=== PATIENT | female | born 1955 | race Caucasian/White ===

== ENCOUNTER 2020-08-04 08:26 | Outpatient (REF) | payer BC, SELFPAY ==
[2020-08-04 09:35] LABS: Hematocrit 46.9 % (37-47); Hemoglobin 15.9 g/dl (12.0-16.0); Mean Corpuscular HGB Conc 33.9 g/dl (31.0-35.0); Mean Corpuscular Hemoglobin 32.1 pg (27.0-33.0); Mean Corpuscular Volume 94.6 fL (80-98); Mean Platelet Volume 10.5 fL (9.4-12.3); Platelet Count 264 X10*3/uL (160-400); Red Blood Count 4.96 X10*6/uL (4.20-5.50); Red Cell Distribution Width 12.2 % (11.0-16.0); White Blood Count 5.6 X10*3/uL (4.8-10.8)
[2020-08-04 10:15] LABS: Alanine Aminotransferase 20 U/L (0-31); Albumin Level 4.6 g/dL (3.5-5.0); Alkaline Phosphatase 76 U/L (39-117); Anion Gap 14 (12-20); Aspartate Amino Transferase 22 U/L (5-31); Bilirubin Direct 0.5 mg/dL (0.0-0.5); Blood Urea Nitrogen 11 mg/dL (9-16); Calcium 9.8 mg/dL (8.4-10.2); Carbon Dioxide 28 mmol/L (22-29); Chloride 102 mmol/L (96-108); Cholesterol 232 mg/dL; Estimated Glomerular Filt Rate > 60; Glucose Fasting 93 mg/dL (60-99); HDL Cholesterol 126 mg/dL; LDL Cholesterol Calculated 93 mg/dl; Potassium 4.4 mmol/l (3.3-5.1); Sodium 140 mmol/L (135-145); Total Protein 7.4 g/dL (6.5-8.0); Triglycerides 68 mg/dL
== END 2020-08-04 08:27 | disposition home or self-care (01) ==
LOC: HO.LAB 08:26
DX: I10 Essential (primary) hypertension (principal); E78.5 Hyperlipidemia, unspecified
CPT/HCPCS: 36415; 80053; 80061; 80076; 82248; 85027

== ENCOUNTER 2021-03-08 13:40 | Outpatient (REF) | payer BC, SELFPAY ==
--- NOTE | ~2021-03-08 | MM_ITS ---
EXAMINATION: MM SCREENING DIGITAL BREAST TOMOSYNTHESIS, BILATERAL CLINICAL INFORMATION: Screening. Asymptomatic. The lifetime risk of breast cancer based on the Tyrer-Cuzick Model is 7%. COMPARISON: Mammography: 05/19/2019, 05/17/2018, 11/03/2016 TECHNIQUE: Digital breast tomosynthesis is performed in both the craniocaudal and mediolateral oblique views along with computer-aided detection (CAD). Synthesized 2D images are generated from the tomosynthesis. Additional right MLO view is provided. FINDINGS: There are scattered areas of fibroglandular density (ACR BI-RADS breast composition Category b). There are no significant masses, abnormal calcifications, or other abnormalities. There are scattered bilateral benign round calcifications, most are dermal. There are no significant changes from prior studies. MM/MM tomosynthesis screening BI IMPRESSION: No mammographic evidence of malignancy. ASSESSMENT: BI-RADS 2: Benign RECOMMENDATION: Routine annual mammography screening. This patient's information was entered into a reminder system with a target due date for their next mammogram.
--- NOTE | ~2021-03-08 | MM_ITS ---
EXAMINATION: BONE DENSITOMETRY CLINICAL INDICATION: Osteopenia. COMPARISON: Previous BD dated 05/20/2013 and baseline BD dated 12/31/2009. TECHNIQUE: Using a DataContact DXA System (software version: 13.1) manufactured by [employer], dual-energy x-ray absorptiometry was performed of the lumbar spine and left hip. The images are of good technical quality. Summary results are attached. FINDINGS: AP SPINE L1-L2 (excluding L3 and L4): The data of L1-L4 has been changed to exclude the L3 and L4 vertebral bodies, because degenerative changes in lumbar curvature which may cause overestimation of lumbar spine density. Current: BMD 1.398 g/cm2, Z-score 3.4, T-score 1.9, normal, 5.4% increase from previous, 0.7% increase from baseline (<5% change is not significant). Prior: BMD 1.327 g/cm2. Baseline: BMD 1.388 g/cm2. LEFT FEMUR, NECK: Current: BMD 1.009 g/cm2, Z-score 1.2, T-score -0.2, normal. Prior: BMD 1.056 g/cm2. Baseline: BMD 1.125 g/cm2. LEFT FEMUR, TOTAL: Current: BMD 0.882 g/cm2, Z-score 0.2, T-score -1.0, normal, 12.8% decrease from previous, 18.7% decrease from baseline (<5% change is not significant). Prior: BMD 1.012 g/cm2. Baseline: BMD 1.085 g/cm2. IDENTIFIED RISK FACTORS: Menopause, height loss, hysterectomy, bilateral oophorectomy. HISTORY OF FRACTURE: None listed. MEDICATIONS: Calcium, vitamin D. MM/XR DEXA axial skeleton IMPRESSION: 1. DIAGNOSIS: Normal bone density based on the lowest T-score value of -1.0 in the total femur applying World Health Organization criteria. 2. 10-YEAR FRACTURE RISK PREDICTION, FRAX: According to the guidelines, FRAX calculation should only be performed on patients in the osteopenia bone density category. Therefore, FRAX was not performed on this patient. 3. Treatment Recommendations: NOF guidelines recommend consideration for treatment in postmenopausal women and men age 50 and older presenting with the following: -A hip or vertebral (clinical or morphometric) fracture. -T-score less than or equal to -2.5 at the femoral neck or spine after appropriate evaluation to exclude secondary causes. -Low bone mass at the hip or spine and a 10-year fracture probability by FRAX of greater than or equal to 3% for hip fracture or greater than or equal to 20% for major osteoporotic fracture based on the [place] adapted WHO algorithm. 4. Other Recommendations: All treatment decisions require clinical judgment and consideration of individual patient factors, including patient preferences, comorbidities, previous drug use, risk factors not captured in the FRAX model (e.g. frailty, falls, vitamin D deficiency, increased bone turnover, interval significant decline in bone density) and possible under or overestimation of fracture risk by FRAX. FUTURE SCAN RECOMMENDATION: People with diagnosed cases of osteoporosis or at high risk for fracture should have regular bone mineral density tests. For patients eligible for Medicare, routine testing is allowed once every 2 years. The testing frequency can be increased to one year for patients who have rapidly progressing disease, those who are receiving or discontinuing medical therapy to restore bone mass, or have additional risk factors.
== END 2021-03-08 13:41 | disposition home or self-care (01) ==
LOC: HO.MAMMO 13:40
PROVIDERS: Visit Provider Internal Medicine
DX: Z12.31 Encounter for screening mammogram for malignant neoplasm of breast (principal); Z13.820 Encounter for screening for osteoporosis; M85.80 Other specified disorders of bone density and structure, unspecified site; Z78.0 Asymptomatic menopausal state; Z79.899 Other long term (current) drug therapy; Z98.890 Other specified postprocedural states
CPT/HCPCS: 77063; 77067; 77080

== ENCOUNTER 2021-05-20 06:21 | Day surgery (SDC) | payer BC, SELFPAY ==
[2021-05-13 14:00] VITALS: BMI 30.2
--- NOTE | 2021-05-17 09:44 | P.CONAN_ITS ---
Documented by User: Talita Tadeo NP 05/17/21 09:53 HPI - Anesthesia Eval Consult details Narrative: 65yo F Upper Endoscopy and Colonoscopy PMFSH Active Problems Active Problems: All Active Problems (Updated 05/13/21 @ 13:55 by Lisa Fam RN) Scoliosis (Acute) GERD (gastroesophageal reflux disease) (Acute) Shingles (Acute) Eczema (Acute) Maier esophagus (Acute) Colon cancer screening (Acute) Breast cancer screening by mammogram (Acute) Osteopenia (Acute) Anxiety (Acute) Hypertension (Acute) Hypercholesterolemia (Acute) Past Medical History Medical History Anxiety Barretts esophagus GERD (gastroesophageal reflux disease) Hypercholesterolemia Hypertension Osteopenia Surgical History Surgical History H/O colonoscopy H/O inguinal hernia repair History of section History of esophagogastroduodenoscopy (EGD) S/P NAMRATA-BSO Social History Social History Housing: House Alcohol intake: current Alcohol intake frequency: 0-2 drinks per day Patient Tobacco Use Status: Never used Tobacco Tobacco use type: Cigarette Use of substances other than those prescribed or required for medical reasons: No Advance Directives Information Provided: No Advance Directives on File: No service: No Current occupational status: employed Meds Allergies Allergy/AdvReac Type Severity Reaction Status Date / Time No Known Allergies Allergy Verified 05/20/21 06:59 Home Medications Medication Instructions Recorded Confirmed Last Taken Type cholecalciferol (vitamin D3) 50 50 mcg PO DAILY 10/25/20 05/13/21 Unknown History mcg (2,000 unit) capsule Exam Exam Date and Time: May 17, 2021 0944 Height,Weight and Vital Signs: Height 4 ft 11 in Weight 68.039 kg Assessment and Plan Assessment Anesthesia Assessment: Chart Reviewed Documented by User: Chantel Morris MD 05/20/21 07:42 [facility], [facility] Past Medical History Medical History Anxiety Barretts esophagus GERD (gastroesophageal reflux disease) Hypercholesterolemia Hypertension Osteopenia Family History Family history of problems with anesthesia: No Surgical History Surgical History H/O colonoscopy H/O inguinal hernia repair History of section History of esophagogastroduodenoscopy (EGD) S/P NAMRATA-BSO History of Problems with Anesthesia: No Social History Social History Housing: House Alcohol intake: current Alcohol intake frequency: 0-2 drinks per day Patient Tobacco Use Status: Never used Tobacco Tobacco use type: Cigarette Use of substances other than those prescribed or required for medical reasons: No Advance Directives Information Provided: No Advance Directives on File: No service: No Current occupational status: employed Meds Allergies Allergy/AdvReac Type Severity Reaction Status Date / Time No Known Allergies Allergy Verified 05/20/21 06:59 Home Medications Medication Instructions Recorded Confirmed Last Taken Type cholecalciferol (vitamin D3) 50 50 mcg PO DAILY 10/25/20 05/13/21 Unknown History mcg (2,000 unit) capsule Exam Height,Weight and Vital Signs: Height 4 ft 11 in Weight 68.039 kg Vital Signs Temp Pulse Resp BP Pulse Ox 05/20/21 07:01 98.2 F 81 16 138/81 99 Airway Mallampati Class: III TM Dist: >3cm Neck ROM: Full Loose/Missing/Broken Teeth: No (Crowns, bridge top intact) Heart: RRR Lungs: CTAB Assessment and Plan Assessment Anesthesia Assessment: Anesthesia Plan Discussed Final Anesthetic Review Family History of Problems with Anesthesia: No History of Problems with Anesthesia: No NPO: Yes ASA Class: II Final Preanesthetic Review: No Changes in Pt Med Stat, Meds/Allgs Chart Reviewed, Consent Obtained/Reviewed and Anes Risks/Benef Reviewed Patient Risk: Low Procedure Risk: Low Assessment/Block/Sedation in SS: Assess/Block/Sedation-SS Anesthetic Plan Anesthetic Plan: MAC: Disposition: Standard PACU
[2021-05-20 07:01] VITALS: BP 138/81; PULSE 81; RESP 16; TEMP 36.8; O2SAT 99
[2021-05-20] MEDS: Lactated Ringers 1,000 ML 100 ML IVCONT (07:12)
[2021-05-20 08:30] VITALS: BP 98/65; PULSE 74; RESP 20; TEMP 36.1; O2SAT 99
--- NOTE | 2021-05-20 08:35 | PM.OP ---
Brief Operative Note Date of Service: 05/20/21 Pre-op diagnosis: Maier's, Screening Post-op diagnosis: other (Hiatal hernia, Diverticulosis) Procedure: EGD with biopsies, Colonoscopy to the cecum Surgeon: Rafael Saenz Anesthesia: MAC Was an Casualty Claim Adjuster used for this Procedure?: No Estimated blood loss (mL): 3.0 Pathology: other (A. EG Junction at 35cm) Condition: stable Disposition: PACU
[2021-05-20 08:46] VITALS: BP 121/76; PULSE 73; RESP 16; TEMP 36.1; O2SAT 100
--- NOTE | 2021-05-20 09:22 | OP_ITS ---
SURGEON: Rafael Saenz MD INDICATIONS: The patient presents for evaluation of gastroesophageal reflux with associated Maier's esophagus, and colorectal cancer screening. Full consent has been obtained from her for this, including risks of bleeding and perforation. PREOPERATIVE DIAGNOSIS: POSTOPERATIVE DIAGNOSIS: PROCEDURE PERFORMED: Esophagogastroduodenoscopy with biopsies, and colonoscopy to the cecum. ESTIMATED BLOOD LOSS: COMPLICATIONS: ANESTHESIA: Monitored anesthesia care. ASSISTANTS: SPECIMENS: PREOPERATIVE DIAGNOSES: Gastroesophageal reflux, Maier's esophagus, colorectal cancer screening. POSTOPERATIVE DIAGNOSES: Gastroesophageal reflux, Maier's esophagus, colorectal cancer screening, hiatal hernia, diverticulosis, internal and external hemorrhoids. DESCRIPTION OF PROCEDURE: The patient was placed in the left lateral decubitus position. The Olympus video gastroscope was passed in the posterior oropharynx and upper esophagus under direct vision. The scope was passed slowly into the distal esophagus. The gastroesophageal junction appeared at 35 cm. There was some slight irregularity consistent with reflux and less than 1 cm areas of possible Maier's mucosa. There was no esophagitis nor any lesions. The scope entered into the stomach. There was a small hiatal hernia. The scope was advanced to pylorus and duodenum was cannulated to the descending portion. The duodenum including the bulb appeared normal without mass or ulceration. The scope was withdrawn back in the stomach. The gastric antrum and body appeared normal with good peristalsis. The scope was retroflexed visualizing the proximal stomach carefully, which appeared normal, without any sign of mass or ulceration. The scope was straightened out and withdrawn back into the esophagus. Biopsies were obtained at the EG junction at 35 cm. Proximal to this, the esophageal mucosa appeared normal. The scope was withdrawn from the patient. She was turned around for the colonoscopy. The digital rectal exam revealed some external hemorrhoids. Sphincter tone was somewhat diminished. The Olympus video pediatric colonoscope was entered into the rectum and advanced easily to the cecum. Once in the cecum, I did identify normal-appearing cecal pouch with appendiceal orifice and a normal-appearing ileocecal valve. There was transillumination of light deep in the right lower quadrant. The entire cecum and ileocecal valve appeared normal. The scope was slowly withdrawn assessing all mucosal surfaces carefully. Preparation was excellent. I did not visualize any sign of polyps, colitis, nor angiodysplasia. There was a mild amount of sigmoid diverticulosis both in the ascending colon and sigmoid colon. In the rectum, scope was retroflexed visualizing internal hemorrhoids, but no other pathology. The scope was straightened out and withdrawn from the patient. She tolerated the procedures well and was returned to the recovery area in stable condition. IMPRESSION: 1. Gastroesophageal reflux, history of Maier's esophagus, hiatal hernia. 2. Diverticulosis. 3. Internal and external hemorrhoids. PLAN: The results of the biopsy will be checked. Assuming there is no dysplasia, I would recommend a repeat upper endoscopy in 3 years. I would recommend a repeat colonoscopy in 10 years for further screening given today's negative exam and no family history of GI malignancy. She will otherwise see me on a p.r.n. basis. MD HAI Olivas/GLENN / [phone]
== END 2021-05-20 09:15 | disposition home or self-care (01) ==
PROVIDERS: PCP Internal Medicine; Visit Provider Internal Medicine
PROC: (CPT 45378; principal; 2021-05-20 07:30)
DX: Z12.11 Encounter for screening for malignant neoplasm of colon (principal); K57.30 Diverticulosis of large intestine without perforation or abscess without bleeding; K64.8 Other hemorrhoids; K21.9 Gastro-esophageal reflux disease without esophagitis; K22.70 Barrett's esophagus without dysplasia; K44.9 Diaphragmatic hernia without obstruction or gangrene; K64.4 Residual hemorrhoidal skin tags; I10 Essential (primary) hypertension; Z79.899 Other long term (current) drug therapy
CPT/HCPCS: 45378; 43239; 88305

== ENCOUNTER 2021-11-08 07:10 | Outpatient (REF) | payer BC, SELFPAY ==
[2021-11-08 07:38] LABS: MANUAL DIFF FLAG NO
[2021-11-08 08:03] LABS: Basophils Absolute Auto 0.1 X10*3/uL (0.0-0.2); Eosinophils Absolute Auto 0.7 X10*3/uL (0.0-0.4); Eosinophils Percent Auto 13.3 % (0-4); Hematocrit 42.1 % (37.0-47.0); Hemoglobin 14.3 g/dl (12.0-16.0); Imm Gran Abs Auto 0.01 X10*3/uL (0.00-0.03); Imm Gran Pct Auto 0.2 % (0.0-0.4); Lymphocytes Absolute Auto 1.6 X10*3/uL (1.2-4.9); Lymphocytes Percent Auto 30.3 % (20-40); Mean Corpuscular Hemoglobin 31.6 pg (27.0-33.0); Mean Corpuscular Volume 92.9 fL (80.0-98.0); Mean Platelet Volume 11.1 fL (9.4-12.3); Monocytes Absolute Auto 0.5 X10*3/uL (0.1-1.2); Monocytes Percent Auto 9.1 % (2-11); Neutrophils Absolute Auto 2.4 x10*3/uL (2.0-8.3); Neutrophils Percent Auto 46.1 % (45-73); Platelet Count 227 X10*3/uL (160-400); Red Blood Count 4.53 X10*6/uL (4.20-5.50); Red Cell Distribution Width 12.6 % (11.0-16.0); White Blood Count 5.3 X10*3/uL (4.8-10.8)
[2021-11-08 08:29] LABS: Alanine Aminotransferase 15 U/L (0-31); Albumin Level 4.3 g/dL (3.5-5.0); Alkaline Phosphatase 72 U/L (39-117); Anion Gap 12 (12-20); Aspartate Amino Transferase 19 U/L (5-31); Bilirubin Total 0.9 mg/dL (0.0-1.0); Blood Urea Nitrogen 12 mg/dL (9-16); Calcium 9.7 mg/dL (8.4-10.2); Carbon Dioxide 27 mmol/L (22-29); Chloride 106 mmol/L (96-108); Cholesterol 183 mg/dL; Estimated Glomerular Filt Rate > 60; Glucose Random 85 mg/dL (60-115); HDL Cholesterol 78 mg/dL; LDL Cholesterol Calculated 95 mg/dl; Potassium 4.4 mmol/L (3.3-5.1); Sodium 141 mmol/L (135-145); Triglycerides 50 mg/dL
[2021-11-08 08:52] LABS: Free T4 (Free Thyroxine) 0.82 ng/dL (0.71-1.85); Thyroid Stimulating Hormone 2.95 uIU/mL (0.32-4.0); Vitamin D 25-OH Total 39.4 ng/mL (>30)
[2021-11-08 09:41] LABS: Folate 12.7 ng/mL (> or = 4.0); Vitamin B12 441 pg/mL (200-900)
== END 2021-11-08 07:11 | disposition home or self-care (01) ==
LOC: HO.LAB 07:10
PROVIDERS: PCP Internal Medicine; Visit Provider Internal Medicine
DX: I10 Essential (primary) hypertension (principal); K22.70 Barrett's esophagus without dysplasia; M85.80 Other specified disorders of bone density and structure, unspecified site; E78.00 Pure hypercholesterolemia, unspecified
CPT/HCPCS: 36415; 80053; 80061; 82306; 82607; 82746; 84439; 84443; 85025

== ENCOUNTER 2022-06-27 14:22 | Outpatient (REF) | payer BC, SELFPAY ==
--- NOTE | ~2022-06-27 | MM_ITS ---
EXAMINATION: MM SCREENING DIGITAL BREAST TOMOSYNTHESIS, BILATERAL CLINICAL INFORMATION: Screening. Asymptomatic. The lifetime risk of breast cancer based on the Tyrer-Cuzick Model is 7%. COMPARISON: Mammography: 03/08/2021, 05/19/2019, 05/17/2018 TECHNIQUE: Digital breast tomosynthesis is performed in both the craniocaudal and mediolateral oblique views along with computer-aided detection (CAD). Synthesized 2D images are generated from the tomosynthesis. FINDINGS: There are scattered areas of fibroglandular density (ACR BI-RADS breast composition Category b). There are no significant masses, abnormal calcifications, or other abnormalities. Parenchymal pattern is similar to prior studies. There is no developing density or architectural abnormality. The axilla and skin contours are unremarkable. No significant changes. MM/MM tomosynthesis screening BI IMPRESSION: No mammographic evidence of malignancy. ASSESSMENT: BI-RADS 1: Negative RECOMMENDATION: Routine annual mammography screening. This patient's information was entered into a reminder system with a target due date for their next mammogram.
== END 2022-06-27 14:23 | disposition home or self-care (01) ==
LOC: HO.MAMMO 14:22
PROVIDERS: Visit Provider Internal Medicine
DX: Z12.31 Encounter for screening mammogram for malignant neoplasm of breast (principal)
CPT/HCPCS: 77063; 77067

== ENCOUNTER 2022-09-30 14:15 | Outpatient (REF) | payer BC, SELFPAY ==
--- NOTE | ~2022-09-30 | XR_ITS ---
EXAMINATION: XR KNEE, LEFT CLINICAL INFORMATION: Left knee sprain COMPARISON: None TECHNIQUE: Four views of the left knee. FINDINGS: There is loss of tricompartment joint space with mild chondrocalcinosis. No loose bodies, joint effusion, fracture or dislocation seen. XR/XR knee LT 4V IMPRESSION: Mild degenerative changes left knee with chondrocalcinosis. No visible acute fracture or dislocation seen.
== END 2022-09-30 14:16 | disposition home or self-care (01) ==
LOC: HO.HMGCX 14:15
PROVIDERS: PCP Internal Medicine; Visit Provider Internal Medicine
DX: S83.92XA Sprain of unspecified site of left knee, initial encounter (principal); X58.XXXA Exposure to other specified factors, initial encounter; Y93.9 Activity, unspecified; Y92.9 Unspecified place or not applicable; Y99.9 Unspecified external cause status
CPT/HCPCS: 73564

== ENCOUNTER 2023-01-31 07:11 | Outpatient (REF) | payer BC, SELFPAY ==
[2023-01-31 07:26] LABS: MANUAL DIFF FLAG NO
[2023-01-31 08:59] LABS: Basophils Absolute Auto 0.1 X10*3/uL (0.0-0.2); Eosinophils Absolute Auto 0.7 X10*3/uL (0.0-0.4); Eosinophils Percent Auto 11.7 % (0-4); Hematocrit 43.8 % (37.0-47.0); Imm Gran Abs Auto 0.01 X10*3/uL (0.00-0.03); Imm Gran Pct Auto 0.2 % (0.0-0.4); Lymphocytes Absolute Auto 2.2 X10*3/uL (1.2-4.9); Lymphocytes Percent Auto 34.3 % (20-40); Mean Corpuscular HGB Conc 34.2 g/dl (31.0-35.0); Mean Corpuscular Hemoglobin 31.6 pg (27.0-33.0); Mean Corpuscular Volume 92.4 fL (80.0-98.0); Mean Platelet Volume 11.1 fL (9.4-12.3); Monocytes Absolute Auto 0.5 X10*3/uL (0.1-1.2); Monocytes Percent Auto 8.3 % (2-11); Neutrophils Absolute Auto 2.8 x10*3/uL (2.0-8.3); Neutrophils Percent Auto 44.5 % (45-73); Platelet Count 249 X10*3/uL (160-400); Red Blood Count 4.74 X10*6/uL (4.20-5.50); Red Cell Distribution Width 12.3 % (11.0-16.0); White Blood Count 6.3 X10*3/uL (4.8-10.8)
[2023-01-31 09:47] LABS: Alanine Aminotransferase 18 U/L (0-31); Albumin Level 4.2 g/dL (3.5-5.0); Alkaline Phosphatase 74 U/L (39-117); Anion Gap 14 (12-20); Aspartate Amino Transferase 21 U/L (5-31); Bilirubin Total 1.1 mg/dL (0.0-1.0); Blood Urea Nitrogen 11 mg/dL (9-16); Calcium 9.6 mg/dL (8.4-10.2); Carbon Dioxide 24 mmol/L (22-29); Chloride 106 mmol/L (96-108); Cholesterol 217 mg/dL; Estimated Glomerular Filt Rate > 60; Glucose Random 94 mg/dL (60-115); HDL Cholesterol 104 mg/dL; LDL Cholesterol Calculated 102 mg/dl; Potassium 4.2 mmol/L (3.3-5.1); Sodium 140 mmol/L (135-145); Total Protein 6.8 g/dL (6.5-8.0); Triglycerides 55 mg/dL
[2023-01-31 09:58] LABS: Folate 8.4 ng/mL (> or = 4.0); Free T4 (Free Thyroxine) 0.95 ng/dL (0.71-1.85); Thyroid Stimulating Hormone 4.73 uIU/mL (0.32-4.0); Vitamin B12 235 pg/mL (200-900); Vitamin D 25-OH Total 33.4 ng/mL (>30)
== END 2023-01-31 07:12 | disposition home or self-care (01) ==
LOC: HO.LAB 07:11
PROVIDERS: PCP Internal Medicine; Visit Provider Internal Medicine
DX: I10 Essential (primary) hypertension (principal); E78.00 Pure hypercholesterolemia, unspecified; E55.9 Vitamin D deficiency, unspecified
CPT/HCPCS: 36415; 80053; 80061; 82306; 82607; 82746; 84439; 84443; 85025

== ENCOUNTER 2023-05-16 07:16 | Outpatient (REF) | payer BC, SELFPAY ==
[2023-05-16 09:07] LABS: Free T4 (Free Thyroxine) 0.81 ng/dL (0.71-1.85); Thyroid Stimulating Hormone 3.43 uIU/mL (0.32-4.0)
== END 2023-05-16 07:17 | disposition home or self-care (01) ==
LOC: HO.LAB 07:16
PROVIDERS: PCP Internal Medicine; Visit Provider Internal Medicine
DX: R94.6 Abnormal results of thyroid function studies (principal)
CPT/HCPCS: 36415; 84439; 84443

== ENCOUNTER 2023-05-22 15:48 | Outpatient (AMB) | payer BC, SELFPAY ==
[2023-05-22 15:57] VITALS: BP 160/94; PULSE 94; O2SAT 98; BMI 29.2
--- NOTE | 2023-05-22 15:57 | A.OFFPC_ITS ---
Vital Signs 05/22/23 15:57 05/22/23 16:42 Height 4 ft 11 in Weight 144 lb 6 oz BMI 29.2 BP 160/94 H 144/60 H Blood Pressure Location Lt brachial Lt brachial Position Sitting Sitting Pulse 94 Pulse Source Pulse Oximeter Pulse Oximetry (%) 98 Oxygen Delivery Method Room Air Intake Visit Reasons: 3 month f/u Accompanied by: Self / Same As Patient Allergies No Known Allergies Allergy (Verified 05/22/23 15:58) Medication List - Last Reconciled 05/22/23 by Jaiden Conte MD amlodipine 10 mg PO DAILY 90 days atorvastatin 40 mg PO DAILY 90 days betamethasone, augmented 0.05 % (Diprolene (augmented)) 1 appl topical BID PRN blood pressure monitor As directed calcium carbonate 600 mg PO DAILY cholecalciferol (vitamin D3) 50 mcg PO DAILY lisinopril 40 mg PO DAILY multivit,Ca,okm-S6-cniorc #181 1,000 unit tabs PO omeprazole 20 mg PO DAILY tramadol 50 mg PO TID PRN 30 days Tobacco use date assessed: 02/03/23 Fall risk assessment: No Falls in past year Last assessed Fall Risk: 05/22/23 Dental Screening Dental Screen Date: 05/22/23 Did you have a dental visit in the last 12 months?: Yes Did you have a dental problem in the last 6 months where you did not have access to dental care?: No Was dental information given to patient?: Patient has dentist HPI 3 month f/u HPI Details 67-year-old overweight female with multiple medical problems hypercholesterolemia hypertension Maier's esophagus generalized anxiety disorder lumbar degenerative disc disease with severe scoliosis coming in for follow-up. Last seen in January 2023 for physical exam. Mammogram due June colonoscopy up-to-date. Last blood work January 2023 TSH repeated normal. Patient has been doing fine otherwise no nausea no vomiting no chest pains no shortness of breath no bowel bladder symptoms. As for anxiety stable does not need any referral for counseling/decline and no medication peer PFSH Medical History Anxiety Barretts esophagus Eczema GERD (gastroesophageal reflux disease) Hypercholesterolemia Hypertension Low back pain Osteopenia Osteopenia Scoliosis Severe scoliosis Sprain of left knee Surgical History H/O colonoscopy H/O inguinal hernia repair History of section History of esophagogastroduodenoscopy (EGD) S/P NAMRATA-BSO Social History Housing: House Alcohol intake: current Alcohol intake frequency: 0-2 drinks per day Alcohol type: beer Patient Tobacco Use Status: Never used Tobacco Tobacco use type: Cigarette e-Cigarette/Vaping Use: Never Used Second Hand Smoke Exposure: No service: No Current occupational status: employed Cognitive needs: No Hearing needs: No Vision needs: Yes Questionnaire PHQ-9 Over the last 2 weeks, how often have you been bothered by any of the following problems? 1. Little interest or pleasure in doing things: not at all 2. Feeling down, depressed, or hopeless: not at all 3. Trouble falling or staying asleep, or sleeping too much: not at all 4. Feeling tired or having little energy: not at all 5. Poor appetite or overeating: not at all 6. Feeling bad about yourself - or that you are a failure or have let yourself or your family down: not at all 7. Trouble concentrating on things, such as reading the newspaper or watching television: not at all 8. Moving or speaking so slowly that other people could have noticed. Or the opposite - being so fidgety or restless that you have been moving around a lot more than usual: not at all 9. Thoughts that you would be better off or of hurting yourself in some way: not at all Total score: 0 Depression Screening Interpretation: Negative Source: Developed by Drs. Rafael Diaz, Terri Barrett, Manuel Liz and colleagues, with an educational shiraz from [employer]. Thrive Questionnaire Date Thrive assessed: 11/05/22 AUDIT C Alcohol Use Questionnaire (AUDIT-C) 1. How often do you have a drink containing alcohol?: 4 or more times a week 2. How many drinks containing alcohol do you have on a typical day when you are drinking?: 1 or 2 3. How often do you have six or more drinks on one occasion?: Never Total Score: 4 JOEY-7 AMB Questionnaire JOEY-7 Date JOEY - 7 assessed: 02/03/23 Source: Developed by Drs. Rafael Diaz, Terri Barrett, Manuel Liz and colleagues, with an educational shiraz from [employer]. Physical exam (Primary Care) Vital Signs: Last Vital Signs Pulse 94 05/22/23 15:57 BP 160/94 H 05/22/23 15:57 Pulse Ox 98 05/22/23 15:57 Oxygen Delivery Method Room Air 05/22/23 15:57 BMI result Body Mass Index 29.2 Tobacco/Smoking Status: Tobacco use Status Tobacco use date assessed 02/03/23 05/22/23 16:02 Patient Tobacco Use Status Never used Tobacco 05/22/23 16:02 Tobacco use type Cigarette 05/22/23 16:02 e-Cigarette/Vaping Use Never Used 05/22/23 16:02 PHQ-9: PHQ-9 Score PHQ-9: Total score 0 05/22/23 16:02 Depression Screening Interpretation: Negative Thrive Assessment: Date of Thrive Assessment Date Thrive assessed 11/05/22 05/22/23 16:02 Const General: alert; No acute distress Eyes Conjunctivae: conjunctivae normal Resp Auscultation: clear to auscultation bilaterally Cardio Rate: regular rate Rhythm: regular rhythm GI Inspection: Yes normal to inspection Extrem Other: Plus one edema of the lower extremity General: Yes edema Assessment and Plan Assessment & Plan (1) Lumbar degenerative disc disease: Code(s): M51.36 - Other intervertebral disc degeneration, lumbar region Plan: Keep active on tramadol lose the weight (2) TSH elevation: Code(s): R79.89 - Other specified abnormal findings of blood chemistry Plan: Repeat testing normal (3) Generalized anxiety disorder: Code(s): F41.1 - Generalized anxiety disorder Plan: Stable (4) Maier esophagus: Code(s): K22.70 - Maier's esophagus without dysplasia Qualifiers: Maier's esophagus type: without dysplasia Qualified Code(s): K22.70 - Maier's esophagus without dysplasia Plan: Avoid the foods that causes that usually spicy foods, tomato products, juices, coffee, soda and foods that your sensitive to. After eating do not lie down, a llow 3-4 hours before in lie down. And keep the head of bed above 30 degrees to avoid the acid from going up. On omeprazole 20 mg once a day (5) Hypertension: Code(s): I10 - Essential (primary) hypertension Qualifiers: Hypertension type: primary hypertension Qualified Code(s): I10 - Essential (primary) hypertension Plan: Continue with blood pressure medication. Decrease salt intake and exercise patient is taking lisinopril 40 mg once a day amlodipine 10 mg once a day BP today is high - advised to monitor at home and record (6) Hypercholesterolemia: Code(s): E78.00 - Pure hypercholesterolemia, unspecified Plan: Avoid fried foods, chicken skin, eggs, butter margarine, pastries and meat. Be it pork or beef they have a lot of cholesterol LDL goal of less than 130 and triglyceride of less than 150 patient is on atorvastatin 40 mg once a day Medications: Refilled tramadol 50 mg PO TID 30 days PRN 90 tabs 2RF pain M41.25 - Other idiopathic scoliosis, thoracolumbar region Coding Level of Care Code Est Pt Level 4 (28909) Diagnoses Lumbar degenerative disc disease M51.36 TSH elevation R79.89 Generalized anxiety disorder F41.1 Maier esophagus K22.70 Maier's esophagus type: without dysplasia Hypertension I10 Hypertension type: primary hypertension Hypercholesterolemia E78.00
[2023-05-22 16:42] VITALS: BP 144/60
== END 2023-05-22 16:46 | disposition home or self-care (01) ==
PROVIDERS: PCP Internal Medicine; Visit Provider Internal Medicine
DX: I10 Essential (primary) hypertension (principal); K22.70 Barrett's esophagus without dysplasia; M51.36 Other intervertebral disc degeneration, lumbar region; R79.89 Other specified abnormal findings of blood chemistry; F41.1 Generalized anxiety disorder; E78.00 Pure hypercholesterolemia, unspecified
CPT/HCPCS: 99214

== ENCOUNTER 2023-07-20 12:34 | Outpatient (REF) | payer BC, SELFPAY ==
--- NOTE | ~2023-07-20 | MM_ITS ---
EXAMINATION: MM SCREENING DIGITAL BREAST TOMOSYNTHESIS, BILATERAL CLINICAL INFORMATION: Screening. Asymptomatic. COMPARISON: Mammography: This study is compared with prior exams dating back to 2017 TECHNIQUE: Digital breast tomosynthesis is performed in both the craniocaudal and mediolateral oblique views along with computer-aided detection (CAD). Synthesized 2D images are generated from the tomosynthesis. FINDINGS: There are scattered areas of fibroglandular density (ACR BI-RADS breast composition Category b). There are no significant masses, abnormal calcifications, or other abnormalities. MM/MM tomosynthesis screening BI IMPRESSION: No mammographic evidence of malignancy. ASSESSMENT: BI-RADS BI-RADS 1 - Negative RECOMMENDATION: Routine annual mammography screening. 1 year F/U This examination should not preclude the clinical evaluation of a suspicious palpable abnormality. This patient's information was entered into a reminder system with a target due date for their next mammogram.
== END 2023-07-20 12:35 | disposition home or self-care (01) ==
LOC: HO.MAMMO 12:34
PROVIDERS: PCP Internal Medicine; Visit Provider Internal Medicine
DX: Z12.31 Encounter for screening mammogram for malignant neoplasm of breast (principal)
CPT/HCPCS: 77063; 77067

== ENCOUNTER → 2023-07-20 13:00 | Outpatient (BNV) | payer BC, SELFPAY | PROVIDERS: PCP Internal Medicine; Visit Provider Radiology Diagnostic Radiology | DX: Z12.31 Encounter for screening mammogram for malignant neoplasm of breast (principal) | CPT/HCPCS: 77063; 77067 ==

== ENCOUNTER 2023-09-07 12:35 | Outpatient (AMB) | payer BC, SELFPAY ==
[2023-09-07 12:45] VITALS: BP 138/76; PULSE 91; O2SAT 98; BMI 28.5
--- NOTE | 2023-09-07 12:45 | MHC.PC.OV ---
Vital Signs 09/07/23 12:45 Height 4 ft 11 in Weight 141 lb 0.2 oz BMI 28.5 BP 138/76 Blood Pressure Location Lt brachial Position Sitting Pulse 91 Pulse Source Pulse Oximeter Pulse Oximetry (%) 98 Oxygen Delivery Method Room Air Intake Visit Reasons: 3 mon f/u Dialysis Patient Care Technician Required: No Allergies No Known Allergies Allergy (Verified 09/07/23 12:46) Tobacco use date assessed: 09/07/23 Fall risk assessment: No Falls in past year Last assessed Fall Risk: 09/07/23 Dental Screening Dental Screen Date: 09/07/23 HPI 3 mon f/u HPI Details 67-year-old overweight female with a history of hypertension hypercholesterolemia Maier's esophagus generalized anxiety disorder lumbar degenerative disc disease last seen in May 2023. Up-to-date with mammogram, colonoscopy [facility] Medical History Anxiety Barretts esophagus Eczema GERD (gastroesophageal reflux disease) Hypercholesterolemia Hypertension Low back pain Osteopenia Osteopenia Scoliosis Severe scoliosis Sprain of left knee Surgical History H/O colonoscopy H/O inguinal hernia repair History of section History of esophagogastroduodenoscopy (EGD) S/P NAMRATA-BSO Social History Housing: House Alcohol intake: current Alcohol intake frequency: 0-2 drinks per day Alcohol type: beer Patient Tobacco Use Status: Never used Tobacco Tobacco use type: Cigarette e-Cigarette/Vaping Use: Never Used Second Hand Smoke Exposure: No service: No Current occupational status: employed Cognitive needs: No Hearing needs: No Vision needs: Yes Questionnaire Thrive Questionnaire Date Thrive assessed: 11/05/22 AUDIT C Alcohol Use Questionnaire (AUDIT-C) 1. How often do you have a drink containing alcohol?: 4 or more times a week 2. How many drinks containing alcohol do you have on a typical day when you are drinking?: 1 or 2 3. How often do you have six or more drinks on one occasion?: Never Total Score: 4 JOEY-7 AMB Questionnaire JOEY-7 Date JOEY - 7 assessed: 02/03/23 Source: Developed by Drs. Rafael Diaz, TerriManuel Frausto and colleagues, with an educational shiraz from [employer]. Physical exam (Primary Care) Vital Signs: Last Vital Signs Pulse 91 09/07/23 12:45 BP 138/76 09/07/23 12:45 Pulse Ox 98 09/07/23 12:45 Oxygen Delivery Method Room Air 09/07/23 12:45 BMI result Body Mass Index 28.5 Tobacco/Smoking Status: Tobacco use Status Tobacco use date assessed 09/07/23 09/07/23 12:46 Patient Tobacco Use Status Never used Tobacco 09/07/23 12:46 Tobacco use type Cigarette 09/07/23 12:46 e-Cigarette/Vaping Use Never Used 09/07/23 12:46 Thrive Assessment: Date of Thrive Assessment Date Thrive assessed 11/05/22 09/07/23 12:46 Const General: alert; No acute distress Eyes Conjunctivae: conjunctivae normal Resp Auscultation: clear to auscultation bilaterally Cardio Rate: regular rate Rhythm: regular rhythm GI Inspection: Yes normal to inspection Extrem General: Yes normal to inspection and No edema Assessment and Plan Assessment & Plan (1) Hypertension: Code(s): I10 - Essential (primary) hypertension Qualifiers: Hypertension type: primary hypertension Qualified Code(s): I10 - Essential (primary) hypertension Plan: Continue with blood pressure medication. Decrease salt intake and exercise patient takes amlodipine 10 mg once a day lisinopril 40 mg once a day (2) Hypercholesterolemia: Code(s): E78.00 - Pure hypercholesterolemia, unspecified Plan: Avoid fried foods, chicken skin, eggs, butter margarine, pastries and meat. Be it pork or beef they have a lot of cholesterol LDL goal of less than 130 and triglyceride of less than 150. Patient on atorvastatin 40 mg once a day (3) Maier esophagus: Code(s): K22.70 - Maier's esophagus without dysplasia Qualifiers: Maier's esophagus type: without dysplasia Qualified Code(s): K22.70 - Maier's esophagus without dysplasia Plan: Avoid the foods that causes that usually spicy foods, tomato products, juices, coffee, soda and foods that your sensitive to. After eating do not lie down, allow 3-4 hours before in lie down. And keep the head of bed above 30 degrees to avoid the acid from going up. On omeprazole (4) Generalized anxiety disorder: Code(s): F41.1 - Generalized anxiety disorder Plan: Stable (5) Lumbar degenerative disc disease: Code(s): M51.36 - Other intervertebral disc degeneration, lumbar region Plan: Continue being active and well hydrated. Coding Level of Care Code Est Pt Level 4 (18678) Diagnoses Primary hypertension I10 Hypertension type: primary hypertension Hypercholesterolemia E78.00 Maier's esophagus without dysplasia K22.70 Maier's esophagus type: without dysplasia Generalized anxiety disorder F41.1 Lumbar degenerative disc disease M51.36
== END 2023-09-07 13:32 | disposition home or self-care (01) ==
PROVIDERS: PCP Internal Medicine; Visit Provider Internal Medicine
DX: I10 Essential (primary) hypertension (principal); E78.00 Pure hypercholesterolemia, unspecified; K22.70 Barrett's esophagus without dysplasia; F41.1 Generalized anxiety disorder; M51.36 Other intervertebral disc degeneration, lumbar region
CPT/HCPCS: 99214

== ENCOUNTER 2023-12-14 13:44 | Outpatient (AMB) | payer BC, SELFPAY ==
[2023-12-14 13:49] VITALS: BP 140/82; PULSE 91; O2SAT 96; BMI 28.5
--- NOTE | 2023-12-14 13:49 | MHC.PC.OV ---
Vital Signs 12/14/23 13:49 12/14/23 14:41 Height 4 ft 11 in Weight 141 lb 0.1 oz BMI 28.5 BP 140/82 H 130/80 Blood Pressure Location Lt brachial Lt brachial Position Sitting Sitting Pulse 91 Pulse Source Pulse Oximeter Pulse Oximetry (%) 96 Oxygen Delivery Method Room Air Intake Visit Reasons: LBP Chemistry Quality Control Analyst Required: No Allergies No Known Allergies Allergy (Verified 12/14/23 13:49) Tobacco use date assessed: 12/14/23 HPI LBP HPI Details 68-year-old overweight female with hypertension hypercholesterolemia Barretts esophagus generalized anxiety disorder and lumbar degenerative disc coming in for follow-up. Last seen in August 2023. Patient's mammogram is up-to-date colonoscopy is up-to-date. doing good Dr. hamilton [facility] Medical History Anxiety Barretts esophagus Eczema GERD (gastroesophageal reflux disease) Hypercholesterolemia Hypertension Low back pain Osteopenia Osteopenia Scoliosis Severe scoliosis Sprain of left knee Surgical History H/O colonoscopy H/O inguinal hernia repair History of section History of esophagogastroduodenoscopy (EGD) S/P NAMRATA-BSO Social History Housing: House Alcohol intake: current Alcohol intake frequency: 0-2 drinks per day Alcohol type: beer Patient Tobacco Use Status: Never used Tobacco Tobacco use type: Cigarette e-Cigarette/Vaping Use: Never Used Second Hand Smoke Exposure: No service: No Current occupational status: employed Cognitive needs: No Hearing needs: No Vision needs: Yes Questionnaire PHQ-9 Over the last 2 weeks, how often have you been bothered by any of the following problems? 1. Little interest or pleasure in doing things: not at all 2. Feeling down, depressed, or hopeless: not at all 3. Trouble falling or staying asleep, or sleeping too much: not at all 4. Feeling tired or having little energy: not at all 5. Poor appetite or overeating: not at all 6. Feeling bad about yourself - or that you are a failure or have let yourself or your family down: not at all 7. Trouble concentrating on things, such as reading the newspaper or watching television: not at all 8. Moving or speaking so slowly that other people could have noticed. Or the opposite - being so fidgety or restless that you have been moving around a lot more than usual: not at all 9. Thoughts that you would be better off or of hurting yourself in some way: not at all Total score: 0 Depression Screening Interpretation: Negative Depression Screening Done: Yes Source: Developed by Drs. Rafael Diaz, Terri Barrett, Manuel Liz and colleagues, with an educational shiraz from [employer]. Thrive Questionnaire Date Thrive assessed: 12/14/23 I am a: Patient What is your living situation today?: I have a steady place to live Within the past 12 months, did the food you bought not last and you didn't have the money to get more?: Never true Within the past 12 months, did you worry whether your food would run out before you got money to buy more?: Never true Do you have trouble paying for medicines?: No Do you have trouble getting transportation to medical appointments?: No Do you have trouble paying your heating and electricity bill?: No Do you have trouble taking care of your child, family member or friend?: No Do you have trouble with day-to-day activities such as bathing, preparing meals, shopping, managing finances, etc.?: No Are you currently unemployed and looking for a job?: No Are you interested in more education?: No Please select the resources that you would like help with: None THRIVE Score: 0 AUDIT C Alcohol Use Questionnaire (AUDIT-C) 1. How often do you have a drink containing alcohol?: 4 or more times a week 2. How many drinks containing alcohol do you have on a typical day when you are drinking?: 1 or 2 3. How often do you have six or more drinks on one occasion?: Never Total Score: 4 JOEY-7 AMB Questionnaire JOEY-7 Date JOEY - 7 assessed: 12/14/23 Source: Developed by Drs. Rafael Diaz, Terri Barrett, Manuel Liz and colleagues, with an educational shiraz from [employer]. Physical exam (Primary Care) Vital Signs: Last Vital Signs Pulse 91 12/14/23 13:49 BP 140/82 H 12/14/23 13:49 Pulse Ox 96 12/14/23 13:49 Oxygen Delivery Method Room Air 12/14/23 13:49 BMI result Body Mass Index 28.5 Tobacco/Smoking Status: Tobacco use Status Tobacco use date assessed 12/14/23 12/14/23 13:50 Patient Tobacco Use Status Never used Tobacco 12/14/23 13:50 Tobacco use type Cigarette 12/14/23 13:50 e-Cigarette/Vaping Use Never Used 12/14/23 13:50 PHQ-9: PHQ-9 Score PHQ-9: Total score 0 12/14/23 14:39 Depression Screening Interpretation: Negative Thrive Assessment: Date of Thrive Assessment Date Thrive assessed 12/14/23 12/14/23 13:50 Const General: alert; No acute distress Eyes Conjunctivae: conjunctivae normal Resp Auscultation: clear to auscultation bilaterally Cardio Rate: regular rate Rhythm: regular rhythm GI Inspection: Yes normal to inspection Extrem General: Yes normal to inspection and No edema Assessment and Plan Assessment & Plan (1) Hypercholesterolemia: Code(s): E78.00 - Pure hypercholesterolemia, unspecified Plan: Avoid fried foods, chicken skin, eggs, butter margarine, pastries and meat. Be it pork or beef they have a lot of cholesterol LDL goal of less than 130 and triglyceride of less than 150. On atorvastatin 40 mg once a January 2023 last blood work (2) Hypertension: Code(s): I10 - Essential (primary) hypertension Qualifiers: Hypertension type: primary hypertension Qualified Code(s): I10 - Essential (primary) hypertension Plan: Continue with blood pressure medication. Decrease salt intake and exercise patient takes amlodipine 10 mg once a day lisinopril 40 mg once a (3) Maier esophagus: Code(s): K22.70 - Maier's esophagus without dysplasia Qualifiers: Maier's esophagus type: without dysplasia Qualified Code(s): K22.70 - Maier's esophagus without dysplasia Plan: Avoid the foods that causes that usually spicy foods, tomato products, juices, coffee, soda and foods that your sensitive to. After eating do not lie down, allow 3-4 hours before in lie down. And keep the head of bed above 30 degrees to avoid the acid from going up. On omeprazole (4) Generalized anxiety disorder: Code(s): F41.1 - Generalized anxiety disorder Plan: Stable (5) Lumbar degenerative disc disease: Code(s): M51.36 - Other intervertebral disc degeneration, lumbar region Plan: Continue with pain medication as needed Orders: Orders Comprehensive Met. Panel 3 Months E78.00 - Pure hypercholesterolemia, unspecified Vitamin B12 and Folate 3 Months E78.00 - Pure hypercholesterolemia, unspecified Vitamin D 25-OH Total 3 Months E78.00 - Pure hypercholesterolemia, unspecified Complete Blood Count Auto Diff 3 Months E78.00 - Pure hypercholesterolemia, unspecified Free T4 (Free Thyroxine) 3 Months E78.00 - Pure hypercholesterolemia, unspecified Thyroid Stimulating Hormone 3 Months E78.00 - Pure hypercholesterolemia, unspecified Lipid Panel 3 Months E78.00 - Pure hypercholesterolemia, unspecified Coding Level of Care Code Est Pt Level 4 (61592) Diagnoses Hypercholesterolemia E78.00 Primary hypertension I10 Hypertension type: primary hypertension Maier's esophagus without dysplasia K22.70 Maier's esophagus type: without dysplasia Generalized anxiety disorder F41.1 Lumbar degenerative disc disease M51.36
[2023-12-14 14:41] VITALS: BP 130/80
== END 2023-12-14 14:48 | disposition home or self-care (01) ==
PROVIDERS: PCP Internal Medicine; Visit Provider Internal Medicine
DX: E78.00 Pure hypercholesterolemia, unspecified (principal); I10 Essential (primary) hypertension; K22.70 Barrett's esophagus without dysplasia; F41.1 Generalized anxiety disorder; M51.36 Other intervertebral disc degeneration, lumbar region
CPT/HCPCS: 99214

== ENCOUNTER 2024-04-04 08:40 | Outpatient (REF) | payer BC, MEDICARE, SELFPAY ==
[2024-04-04 08:53] LABS: MANUAL DIFF FLAG NO
[2024-04-04 09:29] LABS: Basophils Absolute Auto 0.1 X10*3/uL (0.0-0.2); Basophils Percent Auto 1.2 % (0-2); Eosinophils Absolute Auto 0.7 X10*3/uL (0.0-0.4); Eosinophils Percent Auto 10.7 % (0-4); Hematocrit 44.7 % (37.0-47.0); Hemoglobin 15.7 g/dl (12.0-16.0); Imm Gran Abs Auto 0.01 X10*3/uL (0.00-0.03); Imm Gran Pct Auto 0.1 % (0.0-0.4); Lymphocytes Absolute Auto 1.9 X10*3/uL (1.2-4.9); Lymphocytes Percent Auto 26.9 % (20-40); Mean Corpuscular HGB Conc 35.1 g/dl (31.0-35.0); Mean Corpuscular Hemoglobin 32.4 pg (27.0-33.0); Mean Corpuscular Volume 92.4 fL (80.0-98.0); Mean Platelet Volume 10.6 fL (9.4-12.3); Monocytes Absolute Auto 0.6 X10*3/uL (0.1-1.2); Monocytes Percent Auto 8.9 % (2-11); Neutrophils Absolute Auto 3.6 x10*3/uL (2.0-8.3); Neutrophils Percent Auto 52.2 % (45-73); Platelet Count 286 X10*3/uL (160-400); Red Blood Count 4.84 X10*6/uL (4.20-5.50); Red Cell Distribution Width 13.1 % (11.0-16.0); White Blood Count 6.9 X10*3/uL (4.8-10.8)
[2024-04-04 10:20] LABS: Alanine Aminotransferase 21 U/L (0-31); Albumin Level 4.3 g/dL (3.5-5.0); Alkaline Phosphatase 81 U/L (39-117); Anion Gap 13 (12-20); Aspartate Amino Transferase 24 U/L (5-31); Bilirubin Total 0.9 mg/dL (0.0-1.0); Blood Urea Nitrogen 8 mg/dL (9-16); Calcium 9.4 mg/dL (8.4-10.2); Carbon Dioxide 27 mmol/L (22-29); Chloride 106 mmol/L (96-108); Cholesterol 220 mg/dL (<200); Estimated Glomerular Filt Rate > 60; Glucose Random 88 mg/dL (60-115); HDL Cholesterol 111 mg/dL (>40); LDL Cholesterol Calculated 96 mg/dL (<100); Potassium 4.4 mmol/L (3.3-5.1); Sodium 142 mmol/L (135-145); Total Protein 7.1 g/dL (6.5-8.0); Triglycerides 69 mg/dL (<150)
[2024-04-04 10:27] LABS: Free T4 (Free Thyroxine) 0.86 ng/dL (0.71-1.85); Thyroid Stimulating Hormone 2.87 uIU/mL (0.32-4.0); Vitamin D 25-OH Total 27.4 ng/mL (>30)
[2024-04-04 12:16] LABS: Folate 10.2 ng/mL (> or = 4.0); Vitamin B12 312 pg/mL (200-900)
== END 2024-04-04 08:41 | disposition home or self-care (01) ==
LOC: HO.LAB 08:40
PROVIDERS: PCP Internal Medicine; Visit Provider Internal Medicine
DX: E78.00 Pure hypercholesterolemia, unspecified (principal)
CPT/HCPCS: 36415; 80053; 80061; 82306; 82607; 82746; 84439; 84443; 85025

== ENCOUNTER 2024-04-08 13:46 | Outpatient (AMB) | payer MEDICARE, BC, SELFPAY ==
--- NOTE | 2024-04-08 13:57 | MHC.PC.OV ---
Vital Signs 04/08/24 13:59 04/08/24 14:45 Height 4 ft 11 in Weight 148 lb 0.6 oz BMI 29.9 BP 140/68 H 130/70 Blood Pressure Location Lt brachial Lt brachial Position Sitting Sitting Pulse 109 H Pulse Source Pulse Oximeter Pulse Oximetry (%) 98 Oxygen Delivery Method Room Air Intake Visit Reasons: 3 Month F/U Allergies No Known Allergies Allergy (Verified 04/08/24 14:02) Medication List - Last Reconciled 04/08/24 by Jaiden Conte MD amlodipine 10 mg PO DAILY 90 days atorvastatin 40 mg PO DAILY 90 days betamethasone, augmented 0.05 % (Diprolene (augmented)) 1 appl topical BID PRN blood pressure monitor As directed calcium carbonate 600 mg PO DAILY cholecalciferol (vitamin D3) 50 mcg PO DAILY lisinopril 40 mg PO DAILY multivit,Ca,[id number] #181 1,000 unit tabs PO omeprazole 20 mg PO DAILY Tobacco use date assessed: 12/14/23 Fall risk assessment: No Falls in past year Last assessed Fall Risk: 04/08/24 Dental Screening Dental Screen Date: 09/07/23 HPI 3 Month F/U HPI Details 68-year-old overweight female with a history of hypertension Barretts esophagus hypercholesterolemia generalized anxiety disorder and lumbar degenerative disc disease last seen in November 2023. Patient's mammogram is up-to-date colonoscopy up-to-date stopped tramadol since [place] does have pain still but mild. [facility] Medical History Anxiety Barretts esophagus Eczema GERD (gastroesophageal reflux disease) Hypercholesterolemia Hypertension Low back pain Osteopenia Osteopenia Scoliosis Severe scoliosis Sprain of left knee Surgical History H/O colonoscopy H/O inguinal hernia repair History of section History of esophagogastroduodenoscopy (EGD) S/P NAMRATA-BSO Social History Housing: House Alcohol intake: current Alcohol intake frequency: 0-2 drinks per day Alcohol type: beer Patient Tobacco Use Status: Never used Tobacco Tobacco use type: Cigarette e-Cigarette/Vaping Use: Never Used Second Hand Smoke Exposure: No service: No Current occupational status: employed Cognitive needs: No Hearing needs: No Vision needs: Yes Questionnaire Thrive Questionnaire Date Thrive assessed: 12/14/23 AUDIT C Alcohol Use Questionnaire (AUDIT-C) 1. How often do you have a drink containing alcohol?: 4 or more times a week 2. How many drinks containing alcohol do you have on a typical day when you are drinking?: 1 or 2 3. How often do you have six or more drinks on one occasion?: Never Total Score: 4 JEOY-7 AMB Questionnaire JOEY-7 Date JOEY - 7 assessed: 12/14/23 Source: Developed by Drs. Rafael Diaz, Terri Barrett, Manuel Liz and colleagues, with an educational shiraz from [employer]. Physical exam (Primary Care) Vital Signs: Last Vital Signs Pulse 109 H 04/08/24 13:59 BP 140/68 H 04/08/24 13:59 Pulse Ox 98 04/08/24 13:59 Oxygen Delivery Method Room Air 04/08/24 13:59 BMI result Body Mass Index 29.9 Tobacco/Smoking Status: Tobacco use Status Tobacco use date assessed 12/14/23 04/08/24 13:58 Patient Tobacco Use Status Never used Tobacco 04/08/24 13:58 Tobacco use type Cigarette 04/08/24 13:58 e-Cigarette/Vaping Use Never Used 04/08/24 13:58 Thrive Assessment: Date of Thrive Assessment Date Thrive assessed 12/14/23 04/08/24 13:58 Const General: alert; No acute distress Eyes Conjunctivae: conjunctivae normal Resp Auscultation: clear to auscultation bilaterally Cardio Rate: regular rate Rhythm: regular rhythm GI Inspection: Yes normal to inspection Extrem General: Yes normal to inspection and No edema Assessment and Plan Assessment & Plan (1) Hypertension: Code(s): I10 - Essential (primary) hypertension Qualifiers: Hypertension type: primary hypertension Qualified Code(s): I10 - Essential (primary) hypertension Plan: Continue with blood pressure medication. Decrease salt intake and exercise on amlodipine 10 mg once a day lisinopril 40 mg once a day (2) Hypercholesterolemia: Code(s): E78.00 - Pure hypercholesterolemia, unspecified Plan: Avoid fried foods, chicken skin, eggs, butter margarine, pastries and meat. Be it pork or beef they have a lot of cholesterol LDL goal of less than 130 and triglyceride of less than 150 takes atorvastatin 40 mg once a day (3) Maier esophagus: Code(s): K22.70 - Maier's esophagus without dysplasia Qualifiers: Maier's esophagus type: without dysplasia Qualified Code(s): K22.70 - Maier's esophagus without dysplasia Plan: Avoid the foods that causes that usually spicy foods, tomato products, juices, coffee, soda and foods that your sensitive to. After eating do not lie down, allow 3-4 hours before in lie down. And keep the head of bed above 30 degrees to avoid the acid from going up. On omeprazole 20 mg once a day (4) Generalized anxiety disorder: Code(s): F41.1 - Generalized anxiety disorder Plan: Continue with present medication (5) Overweight (BMI 25.0-29.9): Code(s): E66.3 - Overweight Plan: diet and exercise Medications: Discontinued tramadol Discontinued Reason: Patient Completed Course 50 mg PO TID 30 days PRN 90 tabs 2RF pain M41.25 - Other idiopathic scoliosis, thoracolumbar region Coding Level of Care Code Est Pt Level 4 (05863) Diagnoses Primary hypertension I10 Hypertension type: primary hypertension Hypercholesterolemia E78.00 Maier's esophagus without dysplasia K22.70 Maier's esophagus type: without dysplasia Generalized anxiety disorder F41.1 Overweight (BMI 25.0-29.9) E66.3
[2024-04-08 13:59] VITALS: BP 140/68; PULSE 109; O2SAT 98; BMI 29.9
[2024-04-08 14:45] VITALS: BP 130/70
== END 2024-04-08 15:03 | disposition home or self-care (01) ==
PROVIDERS: PCP Internal Medicine; Visit Provider Internal Medicine
DX: I10 Essential (primary) hypertension (principal); E78.00 Pure hypercholesterolemia, unspecified; K22.70 Barrett's esophagus without dysplasia; F41.1 Generalized anxiety disorder; E66.3 Overweight
CPT/HCPCS: 99214

== ENCOUNTER 2024-06-10 11:05 | Outpatient (AMB) | payer MEDICARE, BC, SELFPAY ==
[2024-06-10 11:19] VITALS: BP 132/74; PULSE 108; O2SAT 97; BMI 31.3
--- NOTE | 2024-06-10 11:19 | MHC.PC.OV ---
Vital Signs 06/10/24 11:19 Height 4 ft 11 in Weight 155 lb BMI 31.3 BP 132/74 Blood Pressure Location Lt brachial Position Sitting Pulse 108 H Pulse Source Pulse Oximeter Pulse Oximetry (%) 97 Oxygen Delivery Method Room Air Intake Visit Reasons: left ear crackling noise Percussion Teacher Required: No Accompanied by: Self / Same As Patient Allergies No Known Allergies Allergy (Verified 06/10/24 11:20) Medication List - Last Reconciled 06/10/24 by Eva Goyal PA-C amlodipine 10 mg PO DAILY 90 days atorvastatin 40 mg PO DAILY 90 days betamethasone, augmented 0.05 % (Diprolene (augmented)) 1 appl topical BID PRN blood pressure monitor As directed calcium carbonate 600 mg PO DAILY cholecalciferol (vitamin D3) 50 mcg PO DAILY lisinopril 40 mg PO DAILY multivit,Ca,[id number] #181 1,000 unit tabs PO omeprazole 20 mg PO DAILY Tobacco use date assessed: 12/14/23 Fall risk assessment: No Falls in past year Last assessed Fall Risk: 06/10/24 Dental Screening Dental Screen Date: 06/10/24 Did you have a dental visit in the last 12 months?: Yes Did you have a dental problem in the last 6 months where you did not have access to dental care?: No Was dental information given to patient?: Patient has dentist HPI left ear crackling noise HPI Details 68-year-old overweight female with a history of hypertension Barretts esophagus hypercholesterolemia generalized anxiety disorder and lumbar degenerative disc disease last seen by Dr. Conte March 2024 coming in for acute problem. She states her left ear has been making a crackling sound for the last few months. She has never had anything like this in the past and does not identify anything that makes it better or worse. She has been using Debrox drops, Claritin inconsistently and sudafed for 10 consecutive days. Denies any upper respiratory symptoms or fevers. REPLACED BY [facility] Medical History Anxiety Barretts esophagus Eczema GERD (gastroesophageal reflux disease) Hypercholesterolemia Hypertension Low back pain Osteopenia Osteopenia Scoliosis Severe scoliosis Sprain of left knee Surgical History H/O colonoscopy H/O inguinal hernia repair History of section History of esophagogastroduodenoscopy (EGD) S/P NAMRATA-BSO Social History Housing: House Alcohol intake: current Alcohol intake frequency: 0-2 drinks per day Alcohol type: beer Patient Tobacco Use Status: Never used Tobacco Tobacco use type: Cigarette e-Cigarette/Vaping Use: Never Used Second Hand Smoke Exposure: No service: No Current occupational status: employed Cognitive needs: No Hearing needs: No Vision needs: Yes Questionnaire PHQ-9 Over the last 2 weeks, how often have you been bothered by any of the following problems? 1. Little interest or pleasure in doing things: not at all 2. Feeling down, depressed, or hopeless: not at all 3. Trouble falling or staying asleep, or sleeping too much: not at all 4. Feeling tired or having little energy: not at all 5. Poor appetite or overeating: not at all 6. Feeling bad about yourself - or that you are a failure or have let yourself or your family down: not at all 7. Trouble concentrating on things, such as reading the newspaper or watching television: not at all 8. Moving or speaking so slowly that other people could have noticed. Or the opposite - being so fidgety or restless that you have been moving around a lot more than usual: not at all 9. Thoughts that you would be better off or of hurting yourself in some way: not at all Total score: 0 Depression Screening Interpretation: Negative Depression Screening Done: Yes Source: Developed by Drs. Rafael Diaz, Terri Barrett, Manuel Liz and colleagues, with an educational shiraz from [employer]. Thrive Questionnaire Date Thrive assessed: 12/14/23 Are you currently unemployed and looking for a job?: I choose not to answer this question AUDIT C Alcohol Use Questionnaire (AUDIT-C) 1. How often do you have a drink containing alcohol?: 4 or more times a week 2. How many drinks containing alcohol do you have on a typical day when you are drinking?: 1 or 2 3. How often do you have six or more drinks on one occasion?: Never Total Score: 4 JOEY-7 AMB Questionnaire JOEY-7 Date JOEY - 7 assessed: 12/14/23 Source: Developed by Drs. Rafael Diaz, Terri Barrett, Manuel Liz and colleagues, with an educational shiraz from [employer]. Review of Systems Const Denies body aches, Denies chills and Denies fever(s) Eyes Reports no additional complaints ENT Denies ear discharge, Denies otalgia, Denies facial pain, Denies nasal congestion, Denies nasal discharge, Denies odynophagia, Denies tinnitus, Denies sinus pressure and Denies sore throat Card Denies chest pain and Denies dyspnea Resp Denies dyspnea GI Denies odynophagia Physical exam (Primary Care) Vital Signs: Last Vital Signs Pulse 108 H 06/10/24 11:19 BP 132/74 06/10/24 11:19 Pulse Ox 97 06/10/24 11:19 Oxygen Delivery Method Room Air 06/10/24 11:19 BMI result Body Mass Index 31.3 Tobacco/Smoking Status: Tobacco use Status Tobacco use date assessed 12/14/23 06/10/24 11:24 Patient Tobacco Use Status Never used Tobacco 06/10/24 11:24 Tobacco use type Cigarette 06/10/24 11:24 e-Cigarette/Vaping Use Never Used 06/10/24 11:24 PHQ-9: PHQ-9 Score PHQ-9: Total score 0 06/10/24 12:32 Depression Screening Interpretation: Negative Thrive Assessment: Date of Thrive Assessment Date Thrive assessed 12/14/23 06/10/24 11:24 Const General: cooperative, healthy appearing, comfortable and no acute distress Orientation/consciousness: patient oriented x3 HENMT Head: Yes normocephalic Ears: hearing grossly normal bilaterally, Abnormal EAC present excessive cerumen on the right and TM abnormal wth effusion serous on the left General nose exam: Normal external nose present Eyes General: appearance normal, both eyes and all related structures Conjunctivae: conjunctivae normal Neck Neck: Yes full ROM and Yes no lymphadenopathy Resp Effort & Inspection: normal respiratory effort Auscultation: clear to auscultation bilaterally, no crackles, no rales, no rhonchi and no wheezes Cardio Rate: regular rate Rhythm: regular rhythm Skin General skin exam: no rashes or lesions noted Neuro General: patient oriented x3 Gait exam (Neuro): Normal gait present Extrem General: Yes normal to inspection, Yes full ROM and No edema Psych Affect: normal affect Attitude: cooperative Insight: Good insight present (Psych) Judgement: Good judgement present (Psych) Office Procedures Cerumen Removal From which ear canal was the cerumen removed: right Removal: otoscope w/curette Notes: patient tolerated procedure well, no complications and ear canal clear 85031-Vjn Wax Removal by Spoon/Curette Assessment and Plan Assessment & Plan (1) Impacted cerumen of right ear: Code(s): H61.21 - Impacted cerumen, right ear Plan: Patient did have excessive cerumen of the right ear which was successfully removed with lighted curette. Patient tolerated procedure well in TM was visualized as intact with well aerated middle ear spaces. Advised patient to follow up as needed for this concern. (2) Serous otitis media: Code(s): H65.90 - Unspecified nonsuppurative otitis media, unspecified ear Plan: Based on HPI and exam patient presentation most consistent with serous otitis media of the left ear. Advised patient to use [id number] allergy medication and Flonase the next few weeks and monitor for symptom improvement. Follow up in 1 month if symptoms do not improve or sooner if they worsen. Also advised patient to limit the use of Sudafed to no more than 3 days in the future as this can make congestion worse. Plan This note was constructed using voice recognition software. While every effort has been made to ensure accuracy and gas welding equipment mechanic, still areas may have been included sometimes these areas may affect the content or meeting of the given symptoms. Total time spent caring for the patient today was 30 minutes. This includes time spent before the visit reviewing the chart, time spent during the visit, and time spent after the visit and documentation. Medications: New fluticasone propionate 50 mcg/actuation (Allergy Relief (fluticasone)) administer into each nostril 1 spray intranasal DAILY 16 grams 0RF cetirizine (All Day Allergy (cetirizine)) 10 mg PO DAILY PRN 30 tabs 1RF allergy symptoms Coding Level of Care Code Est Pt Level 3 (60641) Diagnoses Impacted cerumen of right ear H61.21 Serous otitis media H65.90 CPT Codes Office Procedure - CPT: 70446-Mkq Wax Removal by Spoon/Curette ([id number])
== END 2024-06-10 11:45 | disposition home or self-care (01) ==
PROVIDERS: PCP Internal Medicine
DX: H65.92 Unspecified nonsuppurative otitis media, left ear (principal); H61.21 Impacted cerumen, right ear

== ENCOUNTER → 2024-06-10 11:05 | Outpatient (BNVA) | payer MEDICARE, BC, SELFPAY | PROVIDERS: PCP Internal Medicine | DX: H61.21 Impacted cerumen, right ear (principal); H65.91 Unspecified nonsuppurative otitis media, right ear | CPT/HCPCS: 69210; 99212 ==

== ENCOUNTER 2024-07-22 13:13 | Outpatient (REF) | payer MEDICARE, BC, SELFPAY ==
--- NOTE | ~2024-07-22 | MM_ITS ---
EXAMINATION: MM SCREENING DIGITAL BREAST TOMOSYNTHESIS, BILATERAL CLINICAL INFORMATION: Screening. Asymptomatic. COMPARISON: Mammography: Comparison is made with available priors TECHNIQUE: Digital breast mammography with tomosynthesis is performed in both the craniocaudal and mediolateral oblique views along with computer-aided detection (CAD). FINDINGS: There are scattered areas of fibroglandular density (ACR BI-RADS breast composition Category b). There are no significant masses, abnormal calcifications, or other abnormalities. MM/MM tomosynthesis screening BI IMPRESSION: No mammographic evidence of malignancy. ASSESSMENT: BI-RADS BI-RADS 1 - Negative RECOMMENDATION: Routine annual mammography screening. 1 year F/U This examination should not preclude the clinical evaluation of a suspicious palpable abnormality. This patient's information was entered into a reminder system with a target due date for their next mammogram. Electronically signed by: Mitzi Valdez DO 08/01/2024 07:41 PM DAISY
== END 2024-07-22 13:14 | disposition home or self-care (01) ==
LOC: HO.MAMMO 13:13
PROVIDERS: PCP Internal Medicine; Visit Provider Internal Medicine
DX: Z12.31 Encounter for screening mammogram for malignant neoplasm of breast (principal)
CPT/HCPCS: 77063; 77067

== ENCOUNTER → 2024-07-22 13:45 | Outpatient (BNV) | payer MEDICARE, BC, SELFPAY | PROVIDERS: PCP Internal Medicine; Visit Provider Internal Medicine | DX: Z12.31 Encounter for screening mammogram for malignant neoplasm of breast (principal) | CPT/HCPCS: 77063; 77067 ==

== ENCOUNTER 2025-02-20 15:51 | Outpatient (AMB) | payer MEDICARE, BC, SELFPAY ==
[2025-02-20 15:56] VITALS: BP 130/62; PULSE 105; O2SAT 96; BMI 33.7
--- NOTE | 2025-02-20 15:56 | MHC.PC.OV ---
Vital Signs 02/20/25 15:56 Height 4 ft 11 in Weight 167 lb BMI 33.7 BP 130/62 Blood Pressure Location Lt brachial Position Sitting Pulse 105 H Pulse Source Pulse Oximeter Pulse Oximetry (%) 96 Oxygen Delivery Method Room Air Intake Visit Reasons: Annual examine Allergies No Known Allergies Allergy (Verified 02/20/25 15:56) Medication List - Last Reconciled 02/20/25 by Jaiden Conte MD amlodipine 10 mg PO DAILY 90 days atorvastatin 40 mg PO DAILY 90 days betamethasone, augmented 0.05 % (Diprolene (augmented)) 1 appl topical BID PRN blood pressure monitor As directed calcium carbonate 600 mg PO DAILY cholecalciferol (vitamin D3) 50 mcg PO DAILY lisinopril 40 mg PO DAILY omeprazole 20 mg PO DAILY Tobacco use date assessed: 02/20/25 Fall risk assessment: No Falls in past year Last assessed Fall Risk: 02/20/25 Dental Screening Dental Screen Date: 02/20/25 Did you have a dental visit in the last 12 months?: Yes Did you have a dental problem in the last 6 months where you did not have access to dental care?: No Was dental information given to patient?: Patient has dentist HPI Annual examine HPI Details seen ENT last year for the ear infection [facility] Medical History Anxiety Barretts esophagus Eczema GERD (gastroesophageal reflux disease) Hypercholesterolemia Hypertension Low back pain Osteopenia Osteopenia Scoliosis Severe scoliosis Sprain of left knee Surgical History H/O colonoscopy H/O inguinal hernia repair History of section History of esophagogastroduodenoscopy (EGD) S/P [facility] Social History (Updated 02/20/25 @ 16:39 by Jaiden Conte MD) Housing: House Alcohol intake: current Alcohol intake frequency: 0-2 drinks per day Alcohol type: beer Comment: QD 3 beers Patient Tobacco Use Status: Never used Tobacco Tobacco use type: Cigarette e-Cigarette/Vaping Use: Never Used Second Hand Smoke Exposure: No service: No Current occupational status: employed Cognitive needs: No Hearing needs: No Vision needs: Yes Questionnaire PHQ-9 Over the last 2 weeks, how often have you been bothered by any of the following problems? 1. Little interest or pleasure in doing things: not at all 2. Feeling down, depressed, or hopeless: not at all 3. Trouble falling or staying asleep, or sleeping too much: not at all 4. Feeling tired or having little energy: not at all 5. Poor appetite or overeating: not at all 6. Feeling bad about yourself - or that you are a failure or have let yourself or your family down: not at all 7. Trouble concentrating on things, such as reading the newspaper or watching television: not at all 8. Moving or speaking so slowly that other people could have noticed. Or the opposite - being so fidgety or restless that you have been moving around a lot more than usual: not at all 9. Thoughts that you would be better off or of hurting yourself in some way: not at all Total score: 0 Depression Screening Interpretation: Negative Depression Screening Done: Yes Source: Developed by Drs. Rafael Diaz, Terri Barrett, Manuel Liz and colleagues, with an educational shiraz from [employer]. Thrive Questionnaire Date Thrive assessed: 02/20/25 I am a: Patient What is your living situation today?: I have a steady place to live Within the past 12 months, did the food you bought not last and you didn't have the money to get more?: Never true Within the past 12 months, did you worry whether your food would run out before you got money to buy more?: Never true Do you have trouble paying for medicines?: No Do you have trouble getting transportation to medical appointments?: No Do you have trouble paying your heating and electricity bill?: No Do you have trouble taking care of your child, family member or friend?: No Do you have trouble with day-to-day activities such as bathing, preparing meals, shopping, managing finances, etc.?: No Are you currently unemployed and looking for a job?: No Are you interested in more education?: No Please select the resources that you would like help with: None Currently or been in a relationship where the following occur: No concerns reported THRIVE Score: 0 AUDIT C Alcohol Use Questionnaire (AUDIT-C) 1. How often do you have a drink containing alcohol?: 4 or more times a week 2. How many drinks containing alcohol do you have on a typical day when you are drinking?: 1 or 2 3. How often do you have six or more drinks on one occasion?: Never Total Score: 4 JOEY-7 AMB Questionnaire JOEY-7 Date JOEY - 7 assessed: 02/20/25 Feeling nervous, anxious, or on edge: 0 = Not at all Not being able to stop or control worryin = Not at all Worrying too much about different things: 0 = Not at all Trouble relaxin = Not at all Being so restless that it is hard to sit still: 0 = Not at all Becoming easily annoyed or irritable: 0 = Not at all Feeling afraid as if something awful might happen: 0 = Not at all Total JOEY-7 score (0-4 normal; 5-9 mild; 10-14 moderate; 15-21 severe): 0 Source: Developed by Drs. Rafael Diaz, Terri Barrett, Manuel Liz and colleagues, with an educational shiraz from [employer]. Review of Systems Const Denies poor appetite and Denies weakness Eyes Denies no additional complaints ENT Reports Normal hearing present, Denies dizziness, Denies nasal congestion, Denies tinnitus and Denies sore throat Card Denies chest pain, Denies syncope, Denies rapid heart rate and Denies dyspnea Resp Denies cough and Denies dyspnea GI Denies change in stool character, Reports constipation, Denies diarrhea, Denies nausea and Denies vomiting Denies urinary frequency, Denies difficulty voiding and Denies dysuria Neuro Reports Normal hearing present, Denies confusion, Denies dizziness, Denies syncope and Denies weakness Psych Denies confusion Physical exam (Primary Care) Vital Signs: Last Vital Signs Pulse 105 H 02/20/25 15:56 BP 130/62 02/20/25 15:56 Pulse Ox 96 02/20/25 15:56 Oxygen Delivery Method Room Air 02/20/25 15:56 BMI result Body Mass Index 33.7 Tobacco/Smoking Status: Tobacco use Status Tobacco use date assessed 02/20/25 02/20/25 15:58 Patient Tobacco Use Status Never used Tobacco 02/20/25 15:58 Tobacco use type Cigarette 02/20/25 15:58 e-Cigarette/Vaping Use Never Used 02/20/25 15:58 PHQ-9: PHQ-9 Score PHQ-9: Total score 0 02/20/25 16:29 Depression Screening Interpretation: Negative Thrive Assessment: Date of Thrive Assessment Date Thrive assessed 02/20/25 02/20/25 15:58 Currently or been in a relationship where the following occur: No concerns reported Const General: No confusion Orientation/consciousness: No confusion HENMT Head: Yes normocephalic Ears: external ears normal and TM's normal bilaterally Face and sinus: Yes normal facial exam Mouth: moist mucous membranes Throat: Yes tonsils normal Eyes Conjunctivae: conjunctivae normal Pupils: Equal, round and reactive pupils present and Pupil accommodation reflex normal Direct Ophthalmoscopy: normal light reflex Neck Neck: No lymphadenopathy Thyroid: Thyroid normal Chest Chest palpation & inspection: normal inspection of the chest Resp Effort & Inspection: normal respiratory effort and no audible wheezes Auscultation: clear to auscultation bilaterally, no crackles, no wheezes and lung sounds not diminished Cardio Other: tachycardic Rate: regular rate Rhythm: regular rhythm Peripheral pulses: radial pulses present and dorsalis pedis present GI Other: declined Palpation (GI): no masses Auscultation: normal bowel sounds and normoactive bowel sounds Rectal Exam - Female: deferred Skin General skin exam: no rashes or lesions noted Rashes: no rashes Neuro General: No confusion Cranial nerves: Yes Equal, round and reactive pupils present and Yes Normal hearing present Cognition (Neuro): normal cognition Gait exam (Neuro): Normal gait present Motor exam (neuro): 5/5 motor strength present throughout Deep tendon reflexes (DTR's): Right brachioradialis reflex intensity grade: 2+, Left brachioradialis reflex intensity grade: 2+, Right patellar reflex intensity grade: 2+ and Left patellar reflex intensity grade: 2+ Extrem General: No edema Coding Level of Care Code Est Pt Prev Care >65y(70904) Diagnoses Annual physical exam Z00.00 Primary hypertension I10 Hypertension type: primary hypertension Hypercholesterolemia E78.00 Maier's esophagus without dysplasia K22.70 Maier's esophagus type: without dysplasia Generalized anxiety disorder F41.1 Obesity (BMI 30-39.9) E66.9 Assessment & Plan Assessment & Plan (1) Annual physical exam: Code(s): Z00.00 - Encounter for general adult medical examination without abnormal findings Category: Medical Plan: Patient is advised to eat healthy, keep well hydrated, keep active and have adequate sleep. (2) Hypertension: Code(s): I10 - Essential (primary) hypertension Category: Medical Qualifiers: Hypertension type: primary hypertension Qualified Code(s): I10 - Essential (primary) hypertension Plan: Continue with blood pressure medication. Decrease salt intake and exercise on amlodipine 10 mg once a day lisinopril 40 mg once a day (3) Hypercholesterolemia: Code(s): E78.00 - Pure hypercholesterolemia, unspecified Category: Medical Plan: Avoid fried foods, chicken skin, eggs, butter margarine, pastries and meat. Be it pork or beef they have a lot of cholesterol LDL goal of less than 130 and triglyceride of less than 150 on atorvastatin 40 mg once a day (4) Maier esophagus: Code(s): K22.70 - Maier's esophagus without dysplasia Category: Medical Qualifiers: Maier's esophagus type: without dysplasia Qualified Code(s): K22.70 - Maier's esophagus without dysplasia Plan: Avoid the foods that causes that usually spicy foods, tomato products, juices, coffee, soda and foods that your sensitive to. After eating do not lie down, allow 3-4 hours before in lie down. And keep the head of bed above 30 degrees to avoid the acid from going up. (5) Generalized anxiety disorder: Code(s): F41.1 - Generalized anxiety disorder Category: Medical (6) Obesity (BMI 30-39.9): Code(s): E66.9 - Obesity, unspecified Category: Medical Plan: Diet and exercise Plan History of Present Illness The patient is a 69-year-old female presenting with a need for a physical exam and management of chronic conditions. She has a significant history of Maier's Esophagus, requiring routine surveillance. Her chronic conditions include Hypertension, controlled with Amlodipine and Lisinopril. Past laboratory work in March 2024 showed normal electrolytes and renal function, with cholesterol management involving Atorvastatin. The patient manages GERD through non-pharmacologic interventions, including diet and exercise. Her Obesity has worsened since shelter, hindering weight management. She consumes three beers daily, contributing potential implications for her health conditions. Other notable medical issues include Generalized Anxiety Disorder and Lumbar Degenerative Disc Disease. A recent ear infection required extensive corticosteroid treatment. Screening history is up to date with a negative mammogram result in July 2024 and normal bone density in 2020. Colonoscopy in 2020 was unremarkable. Health Maintenance - Blood work, last done in March 2024, was normal, including renal function, electrolytes, and cholesterol LDL of 96 mg/dL. - Mammogram conducted in July 2024 was negative. - Bone density assessed in 2020 was normal. - Colonoscopy performed in 2020 was unremarkable. - Pneumonia vaccination completed in 2021. - Discussed Shingles vaccination, patient reported receiving it three weeks prior. - Discussed possible bone density assessment with mammogram in July. Social History - Retired from the [employer], affecting physical activity levels. - Reports excessive alcohol consumption, specifically three beers daily. - No tobacco or recreational drug use. - Noted weight gain of 12 pounds post-shelter. - Does not require intervention related to primary care due to active self-care. Review of Systems - General: Reports weight gain. - Cardiovascular: Denies chest pain, dizziness. - Respiratory: Denies shortness of breath or cough. - Gastrointestinal: Denies nausea, vomiting, or constipation. Denies heartburn. - Genitourinary: Wakes once nightly to urinate. - Musculoskeletal: Denies joint pain. - Neurological: Denies nausea, vomiting, or passing out. Physical Exam General: Cooperative, healthy appearing, comfortable, no acute distress and well developed Orientation: Patient oriented x3 Limitations: No limitations Head: Normal to inspection Ears: Hearing grossly normal bilaterally, resolved ear infection after two courses of prednisone Nose: Normal external nose present Face and sinus: Normal facial exam Eyes: Appearance normal, both eyes and all related structures Neck: Normal visual inspection and Yes full ROM Respiratory: Normal respiratory effort and able to speak in complete sentences. Clear to auscultation bilaterally Cardiovascular: Regular rate and rhythm. Normal S1 and S2, heart rate noted to be fast during examination GI: Normal to inspection. Soft to palpation and nontender Skin: No rashes or lesions noted Neuro: Patient oriented x3 Extremities: Normal to inspection Results - Labs: Blood work from March 2024 indicated normal blood count, normal electrolytes, normal renal function, LDL of 96 mg/dL. - Tests: Mammogram in July 2024 returned normal results. Bone density test in 2020 was normal. Plan During the visit, we addressed ongoing medication regimens for Hypertension and Hypercholesterolemia, emphasizing the importance of maintaining optimal blood pressure and cholesterol levels. I urged dietary management and increased physical activity for GERD and Obesity control. The patient acknowledged her habitual alcohol consumption; I advised moderation due to potential health impacts. Continuous monitoring of her chronic conditions is essential. Regular follow-up appointments will evaluate her adherence to treatment and health status, ensuring health maintenance goals are met, including addressing Maier's Esophagus surveillance and lifestyle modifications. Patient was informed and verbally consented to the use of an ambient scribe for clinic note documentation during this visit. Discussion Notes I explained to the patient the significance of maintaining her Hypertension and Hypercholesterolemia under control through consistent medication adherence and lifestyle changes. We discussed the risks associated with heavy alcohol consumption, particularly its impacts on her chronic conditions. I provided extensive counseling on nutrition and exercise to manage Obesity and GERD. The need for ongoing surveillance of Maier's Esophagus and potential screening examinations like a mammogram and bone density assessment was also addressed. The patient understood the importance of these management strategies, consenting to continue with preventive measures and medication regimens. Patient Instructions - Take medications as prescribed (Amlodipine, Lisinopril, Atorvastatin). - Manage diet and exercise daily for weight and GERD control. - Limit alcohol consumption to one drink per day. - Follow up for regular screenings, including annual mammogram and bone density test alongside. - Monitor blood pressure regularly at home. - Maintain a healthy lifestyle with balanced nutrition and physical activity. Orders: Orders Complete Blood Count Auto Diff Today E78.00 - Pure hypercholesterolemia, unspecified Comprehensive Met. Panel Today E78.00 - Pure hypercholesterolemia, unspecified Lipid Panel Today E78.00 - Pure hypercholesterolemia, unspecified Vitamin D 25-OH Total Today E78.00 - Pure hypercholesterolemia, unspecified Free T4 (Free Thyroxine) Today E78.00 - Pure hypercholesterolemia, unspecified Thyroid Stimulating Hormone Today E78.00 - Pure hypercholesterolemia, unspecified Vitamin B12 and Folate Today E78.00 - Pure hypercholesterolemia, unspecified XR DEXA axial skeleton Today M51.36 - Other intervertebral disc degeneration, lumbar region, M81.0 - Age-related osteoporosis without current pathological fracture
--- OUTSIDE RECORDS SUMMARY | 2025-02-20 16:56 | XMS_ITS | Patient Health Record ---
Author Organization [facility] Address [address] [place] [address] Care Team Providers Care Shearer Screen Measurer And Trimmer Name Role Phone Po Jaiden MARTIN Primary Care Provider Rafael Cantor [phone] Allergies No Known Allergies Reason For Referral No Information Medications Medication SIG (Take, Route, Frequency, Duration) Notes Start Date End Date Status Omeprazole 20 MG 1 capsule Orally Onc e a day Active Ibuprofen Active Calcium Active Vitamin D3 50 MCG (1999) 1 tablet Ora lly Once a day Active amLODIPine Besylate 5 MG 1 tablet Orally twice a day Active Atorvastatin Calcium 40 MG Oral for 90 Active Lisinopril 40 MG Oral for 90 A ctive Immunizations Vaccine Route Administration Date Status Comme nts Influenza Unknown 05/22/2020 Administered Problems Problem Type SNOMED Code ICD Code Onset Dates Problem Status W/U Status Risk Notes Problem [id number] Encounter for screening for malignant neoplasm of colon (Z12.11) Active confirmed Problem 068933480 Maier's esophagus without dysplasia (K22.70) Active confirmed Problem Gastroesophageal reflux disease (420297085) Gastroesophageal reflux disease (K21.9) Active confirmed Problem Maier esophagus (916461483) Maier esophagus (K22.70) Active confirmed Plan Of Treatment Pending Test Test Name Order Date Pathology 05/20/2021 Future Test Test Name Order Date UPPER GI ENDOSCOPY 03/14/2015 UPPER GI ENDOSCOPY 04/18/2021 COLONOSCOPY 04/18/2021 Insurance Providers Payer Name Payer Address Payer Phone Subscriber Number Group Number Insured Name Patient Relationship to Insured Coverage Start Date Coverage End Date [facility] [address] [place], [place] [id number] [phone] [id number] YAMILET VALENCIA Self - patient is the insured Medical (General) History Medical History History ICD Code GERD/Maier's esophagus--di agnosed in 2008 --last EGD was in 2014--HH noted---no dysplasia on the biopsies--just a small area of Maier's HTN Hyperlipidemia Diverticulosis Denies [place],DM,CVA,renal disease,lung dise ase Colonoscopy 04-19-2009--neg f or polyps-diverticulosis and internal hemorrhoids Hepatic hemangiomas seen on previous ult rasounds and MRIs of the liver Surgical History Surgery Date(Month/Year) Hernia surgery-bilateral inguinal-Dr. Shama Alonso N[facility]
== END 2025-02-20 16:53 | disposition home or self-care (01) ==
LOC: HO.HMCH 15:52
PROVIDERS: PCP Internal Medicine; Visit Provider Internal Medicine
DX: Z00.00 Encounter for general adult medical examination without abnormal findings (principal); I10 Essential (primary) hypertension; E66.9 Obesity, unspecified; Z68.33 Body mass index [BMI] 33.0-33.9, adult; E78.00 Pure hypercholesterolemia, unspecified; K22.70 Barrett's esophagus without dysplasia; F41.1 Generalized anxiety disorder

== ENCOUNTER → 2025-02-20 15:51 | Outpatient (BNVA) | payer MEDICARE, BC, SELFPAY | PROVIDERS: PCP Internal Medicine; Visit Provider Internal Medicine | DX: Z00.00 Encounter for general adult medical examination without abnormal findings (principal); I10 Essential (primary) hypertension; E78.00 Pure hypercholesterolemia, unspecified; K22.70 Barrett's esophagus without dysplasia; F41.1 Generalized anxiety disorder; E66.9 Obesity, unspecified; Z68.33 Body mass index [BMI] 33.0-33.9, adult; Z71.3 Dietary counseling and surveillance | CPT/HCPCS: 99397 ==

== ENCOUNTER 2025-03-18 07:33 | Outpatient (REF) | payer MEDICARE, BC, SELFPAY ==
--- OUTSIDE RECORDS SUMMARY | 2025-03-18 07:36 | XMS_ITS | Patient Health Record ---
Author Organization [facility] Address [address] [place] [address] Care Team Providers Care Roll Tube Setter Name Role Phone Po Jaiden MARTIN Primary Care Provider Rafael Cantor [phone] Allergies No Known Allergies Reason For Referral [...] Problem Status W/U Status Risk Notes Problem [id number] Encounter for screening for malignant neoplasm of colon (Z12.11) Active confirmed Problem 816134437 Maier's esopha artem without dysplasia (K22.70) Active confirmed Problem Gastroesophageal reflux disease (K21.9) Active confirmed Problem Maier esophagus (539582424) Maier esophagus (K22.70) Active confirmed Plan Of Treatment Pending Test Test Name Order Date Pathology 05/20/2021 Future Test Test Name Order Date UPPER GI ENDOSCOPY 03/14/2015 UPPER GI ENDOSCOPY 04/18/2021 COLONOSCOPY 04/18/2021 Insurance Providers Payer Name Payer Address Payer Phone Subscriber Number Group Number Insured Name Patient Relationship to Insured Coverage Start Date Coverage End Date [facility] [address] [place], [place] [id number] YAMILET VALENCIA Self - patient is the insured Medical (General) History Medical History History ICD Code GERD/Maier's esophagus--di agnosed in 2008 --last EGD was in 2014--HH noted---no dysplasia on the biopsies--just a small area of Maier's HTN Hyperlipidemia Diverticulosis Denies [place],DM,CVA,renal disease,lung dise ase Colonoscopy 04-19-2009--neg f or polyps-diverticulosis and internal hemorrhoids Hepatic hemangiomas seen on previous ult rasounds and MRIs of the liver Surgical History Surgery Date(Month/Year) Hernia surgery-bilateral inguinal-Dr. Shama Alonso N[facility]RATA
[2025-03-18 07:57] LABS: MANUAL DIFF FLAG NO
[2025-03-18 08:29] LABS: Basophils Absolute Auto 0.1 X10*3/uL (0.0-0.2); Basophils Percent Auto 1.2 % (0-2); Eosinophils Absolute Auto 0.4 X10*3/uL (0.0-0.4); Eosinophils Percent Auto 7.6 % (0-4); Hematocrit 41.1 % (37.0-47.0); Hemoglobin 15.1 g/dl (12.0-16.0); Imm Gran Abs Auto 0.01 X10*3/uL (0.00-0.03); Imm Gran Pct Auto 0.2 % (0.0-0.4); Lymphocytes Absolute Auto 1.9 X10*3/uL (1.2-4.9); Lymphocytes Percent Auto 37.4 % (20-40); Mean Corpuscular HGB Conc 36.7 g/dl (31.0-35.0); Mean Corpuscular Volume 89.9 fL (80.0-98.0); Mean Platelet Volume 10.4 fL (9.4-12.3); Monocytes Absolute Auto 0.6 X10*3/uL (0.1-1.2); Monocytes Percent Auto 12.3 % (2-11); Neutrophils Absolute Auto 2.1 x10*3/uL (2.0-8.3); Neutrophils Percent Auto 41.3 % (45-73); Platelet Count 270 X10*3/uL (160-400); Red Blood Count 4.57 X10*6/uL (4.20-5.50); Red Cell Distribution Width 12.4 % (11.0-16.0); White Blood Count 5.1 X10*3/uL (4.8-10.8)
[2025-03-18 09:02] LABS: Alanine Aminotransferase 25 U/L (0-31); Albumin Level 4.6 g/dL (3.5-5.0); Alkaline Phosphatase 71 U/L (39-117); Anion Gap 15 (12-20); Aspartate Amino Transferase 29 U/L (5-31); Bilirubin Total 1.1 mg/dL (0.0-1.0); Blood Urea Nitrogen 9 mg/dL (9-16); Calcium 9.8 mg/dL (8.4-10.2); Carbon Dioxide 27 mmol/L (22-29); Chloride 104 mmol/L (96-108); Cholesterol 205 mg/dL (<200); Estimated Glomerular Filt Rate > 60; Glucose Random 88 mg/dL (60-115); HDL Cholesterol 108 mg/dL (>40); LDL Cholesterol Calculated 86 mg/dL (<100); Potassium 4.6 mmol/L (3.3-5.1); Sodium 141 mmol/L (135-145); Total Protein 6.9 g/dL (6.5-8.0); Triglycerides 59 mg/dL (<150)
[2025-03-18 09:23] LABS: Free T4 (Free Thyroxine) 1.07 ng/dL (0.71-1.85); Thyroid Stimulating Hormone 3.67 uIU/mL (0.32-4.0); Vitamin D 25-OH Total 46.2 ng/mL (>30)
[2025-03-18 09:26] LABS: Vitamin B12 198 pg/mL (200-900)
== END 2025-03-18 07:34 | disposition home or self-care (01) ==
LOC: HO.LAB 07:33
PROVIDERS: PCP Internal Medicine; Visit Provider Internal Medicine
DX: E78.00 Pure hypercholesterolemia, unspecified (principal)
CPT/HCPCS: 36415; 80053; 80061; 82306; 82607; 82746; 84439; 84443; 85025

== ENCOUNTER 2025-05-09 10:49 | Outpatient (REF) | payer MEDICARE, BC, SELFPAY ==
--- OUTSIDE RECORDS SUMMARY | 2025-05-09 12:21 | XMS_ITS | Patient Health Record ---
Author Organization [facility] Address [address] [place] [address] Care Team Providers Care Geosciences Associate Professor Name Role Phone Po Jaiden MARTIN Primary Care Provider Rafael Cantor [phone] Allergies No Known Allergies Reason For Referral [...] Problem Status W/U Status Risk Notes Problem [id number] Encounter for screening for malignant neoplasm of colon (Z12.11) Active confirmed Problem 490603435 Maier's esophagus without dysplasia (K22.70) Active confirmed Problem Gastroesophageal reflux disease (119789984) Gastroesophageal reflux disease (K21.9) Active confirmed Problem Maier esophagus (488223789) Maier esophagus (K22.70) Active confirmed Plan Of Treatment Pending Test Test Name Order Date Pathology 05/20/2021 Future Test Test Name Order Date UPPER GI ENDOSCOPY 03/14/2015 UPPER GI ENDOSCOPY 04/18/2021 COLONOSCOPY 04/18/2021 Insurance Providers Payer Name Payer Address Payer Phone Subscriber Number Group Number Insured Name Patient Relationship to Insured Coverage Start Date Coverage End Date [facility] [address] [place], [place] [id number] YAMILET VALENCIA Self - patient is the insured Medical (General) History Medical History History ICD Code GERD/Maier's esophagus--di agnosed in 2008 --last EGD was in 2014--HH noted---no dysplasia on the biopsies--just a small area of Maier's HTN Hyperlipidemia Diverticulosis Denies [place],DM,CVA,renal disease,lung dise ase Colonoscopy 04-19-2009--neg f or polyps-diverticulosis and internal hemorrhoids Hepatic hemangiomas seen on previous ult rasounds and MRIs of the liver Surgical History Surgery Date(Month/Year) Hernia surgery-bilateral inguinal-Dr. Shama Alonso [facility]
[2025-05-09 12:37] LABS: Folate 9.3 ng/mL (> or = 4.0); Vitamin B12 468 pg/mL (200-900)
[2025-05-11 22:34] LABS: Intrinsic Factor Antibodies Negative (Negative)
== END 2025-05-09 10:50 | disposition home or self-care (01) ==
LOC: HO.LAB 10:49
PROVIDERS: PCP Internal Medicine; Visit Provider Internal Medicine
DX: Z01.84 Encounter for antibody response examination (principal); E53.8 Deficiency of other specified B group vitamins
CPT/HCPCS: 36415; 82607; 82746; 83516; 86340

== ENCOUNTER 2025-07-25 13:00 | Outpatient (AMB) | payer MEDICARE, BC, SELFPAY ==
[2025-07-25 13:08] VITALS: BP 138/74; PULSE 115; TEMP 36.3; O2SAT 94; BMI 34.1
--- NOTE | 2025-07-25 13:10 | MHC.PC.OV ---
Vital Signs 07/25/25 13:08 Height 4 ft 11 in Weight 169 lb BMI 34.1 BP 138/74 Blood Pressure Location Lt brachial Position Sitting Pulse 115 H Pulse Source Pulse Oximeter Temp 97.3 F Temp Source Temporal Artery Scan Pulse Oximetry (%) 94 Oxygen Delivery Method Room Air Intake Visit Reasons: Hypertension Allergies No Known Allergies Allergy (Verified 07/25/25 13:10) Medication List - Last Reconciled 07/25/25 by Jaiden Conte MD amlodipine 10 mg PO DAILY 90 days atorvastatin 40 mg PO DAILY 90 days betamethasone, augmented 0.05 % (Diprolene (augmented)) 1 appl topical BID PRN blood pressure monitor As directed calcium carbonate 600 mg PO DAILY cholecalciferol (vitamin D3) 50 mcg PO DAILY cyanocobalamin (vitamin B-12) 1,000 mcg PO DAILY lisinopril 40 mg PO DAILY omeprazole 20 mg PO DAILY Tobacco use date assessed: 07/25/25 Fall risk assessment: No Falls in past year Last assessed Fall Risk: 07/25/25 Dental Screening Dental Screen Date: 07/25/25 Did you have a dental visit in the last 12 months?: Yes Did you have a dental problem in the last 6 months where you did not have access to dental care?: No Was dental information given to patient?: Patient has dentist [facility] Medical History Severe scoliosis Low back pain Sprain of left knee Eczema Osteopenia Barretts esophagus GERD (gastroesophageal reflux disease) Osteopenia Anxiety Hypertension Hypercholesterolemia Scoliosis Surgical History History of esophagogastroduodenoscopy (EGD) H/O colonoscopy S/P [facility] H/O inguinal hernia repair History of section Social History Housing: House Alcohol intake: current Alcohol intake frequency: 0-2 drinks per day Alcohol type: beer Comment: QD 3 beers Patient Tobacco Use Status: Never used Tobacco Tobacco use type: Cigarette e-Cigarette/Vaping Use: Never Used Second Hand Smoke Exposure: No service: No Current occupational status: employed Cognitive needs: No Hearing needs: No Vision needs: Yes Questionnaire PHQ-9 Over the last 2 weeks, how often have you been bothered by any of the following problems? 1. Little interest or pleasure in doing things: not at all 2. Feeling down, depressed, or hopeless: not at all 3. Trouble falling or staying asleep, or sleeping too much: not at all 4. Feeling tired or having little energy: not at all 5. Poor appetite or overeating: not at all 6. Feeling bad about yourself - or that you are a failure or have let yourself or your family down: not at all 7. Trouble concentrating on things, such as reading the newspaper or watching television: not at all 8. Moving or speaking so slowly that other people could have noticed. Or the opposite - being so fidgety or restless that you have been moving around a lot more than usual: not at all 9. Thoughts that you would be better off or of hurting yourself in some way: not at all Total score: 0 Depression Screening Interpretation: Negative Depression Screening Done: Yes Source: Developed by Drs. Rafael Diaz, Terri Barrett, Manuel Liz and colleagues, with an educational shiraz from [employer]. Thrive Questionnaire Date Thrive assessed: 02/20/25 I am a: Patient What is your living situation today?: I have a steady place to live Within the past 12 months, did the food you bought not last and you didn't have the money to get more?: Never true Within the past 12 months, did you worry whether your food would run out before you got money to buy more?: Never true Do you have trouble paying for medicines?: No Do you have trouble getting transportation to medical appointments?: No Do you have trouble paying your heating and electricity bill?: No Do you have trouble taking care of your child, family member or friend?: No Do you have trouble with day-to-day activities such as bathing, preparing meals, shopping, managing finances, etc.?: No Are you currently unemployed and looking for a job?: No Are you interested in more education?: No Please select the resources that you would like help with: None Currently or been in a relationship where the following occur: No concerns reported THRIVE Score: 0 AUDIT C Alcohol Use Questionnaire (AUDIT-C) 1. How often do you have a drink containing alcohol?: 4 or more times a week 2. How many drinks containing alcohol do you have on a typical day when you are drinking?: 1 or 2 3. How often do you have six or more drinks on one occasion?: Never Total Score: 4 JOEY-7 AMB Questionnaire JOEY-7 Date JOEY - 7 assessed: 02/20/25 Feeling nervous, anxious, or on edge: 0 = Not at all Not being able to stop or control worryin = Not at all Worrying too much about different things: 0 = Not at all Trouble relaxin = Not at all Being so restless that it is hard to sit still: 0 = Not at all Becoming easily annoyed or irritable: 0 = Not at all Feeling afraid as if something awful might happen: 0 = Not at all Total JOEY-7 score (0-4 normal; 5-9 mild; 10-14 moderate; 15-21 severe): 0 Source: Developed by Drs. Rafael Diaz, Terri Barrett, Manuel Liz and colleagues, with an educational shiraz from [employer]. Physical exam (Primary Care) Vital Signs: Last Vital Signs Temp 97.3 F 07/25/25 13:08 Pulse 115 H 07/25/25 13:08 BP 138/74 07/25/25 13:08 Pulse Ox 94 07/25/25 13:08 Oxygen Delivery Method Room Air 07/25/25 13:08 BMI result Body Mass Index 34.1 Tobacco/Smoking Status: Tobacco use Status Tobacco use date assessed 07/25/25 07/25/25 13:14 Patient Tobacco Use Status Never used Tobacco 07/25/25 13:14 Tobacco use type Cigarette 07/25/25 13:14 e-Cigarette/Vaping Use Never Used 07/25/25 13:14 PHQ-9: PHQ-9 Score PHQ-9: Total score 0 07/25/25 13:14 Depression Screening Interpretation: Negative Thrive Assessment: Date of Thrive Assessment Date Thrive assessed 02/20/25 07/25/25 13:14 Currently or been in a relationship where the following occur: No concerns reported Const General: alert; No acute distress Eyes Conjunctivae: conjunctivae normal Resp Auscultation: clear to auscultation bilaterally Cardio Rate: regular rate Rhythm: regular rhythm GI Inspection: Yes normal to inspection Extrem General: Yes normal to inspection and No edema Office Procedures Flu Questionnaire Does the patient have a severe egg allergy?: No Does the patient have severe life threatening allergies?: No Does the patient have a fever or illness today?: No Has the patient ever had Guillain-[place] Syndrome?: No Has the patient ever had any past reaction to a flu shot?: No Immunizations Fluarix [id number] (PF) 45 mcg (15 mcg x 3)/0.5 mL IM syringe Performing Provider: Jaiden Conte MD [facility] Administered by: Miriam Marion CMA on 07/25/25 13:16 Dose Route Admin Location Dispensed Lot Number Expiration Date [facility] Dynamometer Mechanic 0.5 mL IM Left Deltoid 0.5 mL [id number] 03/20/26 [id number] [employer] VIS Given Date VIS Provided VIS Publication Date 07/25/25 Single Vaccine 24 Eligibility Eligibility Date Funding Source Not [facility] Eligible 07/25/25 Private Coding Level of Care Code Est Pt Level 4 (34329) Complex EM visit Add On G2211 Diagnoses Primary hypertension I10 Hypertension type: primary hypertension Hypercholesterolemia E78.00 Obesity (BMI 30-39.9) E66.9 Maier's esophagus without dysplasia K22.70 Maier's esophagus type: without dysplasia Generalized anxiety disorder F41.1 Lumbar degenerative disc disease M51.36 Assessment & Plan Assessment & Plan (1) Hypertension: Code(s): I10 - Essential (primary) hypertension Category: Medical Qualifiers: Hypertension type: primary hypertension Qualified Code(s): I10 - Essential (primary) hypertension Plan: Continue with blood pressure medication. Decrease salt intake and exercise patient is on amlodipine 10 mg once a day lisinopril 40 mg once (2) Hypercholesterolemia: Code(s): E78.00 - Pure hypercholesterolemia, unspecified Category: Medical Plan: Avoid fried foods, chicken skin, eggs, butter margarine, pastries and meat. Be it pork or beef they have a lot of cholesterol LDL goal of less than 130 and triglyceride of less than 150 (3) Obesity (BMI 30-39.9): Code(s): E66.9 - Obesity, unspecified Category: Medical Plan: Diet and exercise (4) Maier esophagus: Code(s): K22.70 - Maier's esophagus without dysplasia Category: Medical Qualifiers: Maier's esophagus type: without dysplasia Qualified Code(s): K22.70 - Maier's esophagus without dysplasia Plan: Avoid the foods that causes that usually spicy foods, tomato products, juices, coffee, soda and foods that your sensitive to. After eating do not lie down, allow 3-4 hours before in lie down. And keep the head of bed above 30 degrees to avoid the acid from going up. On omeprazole (5) Generalized anxiety disorder: Code(s): F41.1 - Generalized anxiety disorder Category: Medical Plan: Stable (6) Lumbar degenerative disc disease: Code(s): M51.36 - Other intervertebral disc degeneration, lumbar region Category: Medical Plan: Keep active lose the weight Plan History of Present Illness The patient is a 69-year-old obese female presenting for a follow-up visit. Her past medical history includes hypertension, hypercholesterolemia, Maier's esophagus, general anxiety disorder, and lumbar degenerative disc disease. She was last seen for a physical exam in February 2025. Blood work from March 18 showed a normal blood count with no anemia, normal electrolytes, and normal renal, liver, and thyroid function. Her eosinophil count was high, suggesting an allergic process. Her cholesterol panel was noted to be good with an elevated HDL, and her vitamin B12 level improved to 468 on supplementation. Folic acid level was good. Her current medications include amlodipine 10 mg, lisinopril 40 mg, atorvastatin, omeprazole 20 mg, vitamin D, and vitamin B12. For health maintenance, her last colonoscopy was in 2020 and she is considered up to date, and she recently had an eye exam which identified moderate cataracts that are being monitored. Health Maintenance The patient has a mammogram and bone density scan scheduled for this week. She has received her flu shot and was advised to consider the shingles vaccine. A follow-up visit is scheduled for 6 months. The patient does not require any medication refills at this time. Social History - Activity Level: Advised to keep active. - Diet and Nutrition: Advised on diet and exercise with a recommendation to lose weight. Review of Systems - Eyes: Reports moderate cataracts. - ENT: Reports an itch in her throat. - Cardiovascular: Denies palpitations. - Respiratory: Denies any breathing issues. - Gastrointestinal: Reports normal bowel movements. - Genitourinary: Denies any problems with urination. Physical Exam - Vitals: Blood pressure is very good. Heart rate is normal after re-measurement. - Lungs: Clear to auscultation posteriorly. Results - Labs (March 18): - CBC: Normal blood count, no anemia. White blood cell and platelet counts are within normal limits, though eosinophils were high. - CMP: Normal electrolytes, renal function, blood sugar, and liver function. - Lipid Panel: Cholesterol is good with elevated HDL. - Vitamin B12: 468. - Folic Acid: Good. - Thyroid: Within normal limits. - Other Tests: - Colonoscopy (2020): Up to date. - Eye Exam (last week): Revealed moderate cataracts. Plan Patient was informed and verbally consented to the use of an ambient scribe for clinic note documentation during this visit. 1. Hypertension The patient's blood pressure is well-controlled. She will continue her current regimen of amlodipine 10 mg once a day and lisinopril 40 mg. 2. Hypercholesterolemia The patient's cholesterol is good with an elevated HDL. She will continue taking atorvastatin. The treatment goals are an LDL less than 130 and triglycerides less than 150. Continue to encourage diet and exercise. 3. Maier's Esophagus The patient's condition is stable. She will continue omeprazole. 4. Lumbar Degenerative Disc Disease The patient is advised to keep active and lose weight to manage this condition. 5. Allergies Recent lab work showed high eosinophils, which is indicative of an underlying allergy. The patient was educated that this could manifest as stuffiness, sneezing, coughing, or rashes. Discussion Notes I reviewed the patient's blood work from February, noting that her results were generally good, with a normal CBC, electrolytes, and kidney, liver, and thyroid function. I did inform her that her eosinophils were high, which indicates a possible underlying allergy, and explained the common symptoms associated with this. We also discussed her improved vitamin B12 level of 468, which is now in a good range. I confirmed that her blood pressure remains well-controlled on her current medications. We discussed upcoming health maintenance, including her mammogram and bone density scan scheduled for this week. I advised her to consider getting the shingles vaccine for prevention. The plan is to continue her current stable medication regimen, with a focus on lifestyle through activity and weight loss. I advised we will follow up in six months, but she should let me know if any problems arise in the interim. Patient Instructions - Continue taking your current medications as prescribed for blood pressure, cholesterol, and acid reflux. - You do not need any prescription refills at this time. - Make sure to go to your scheduled mammogram and bone density scan this week. - You have already had your flu shot, but please consider getting the shingles vaccine, which is available at your pharmacy. - Continue to stay active and focus on diet and exercise to help with weight loss. - We will schedule your next follow-up appointment for six months from now. - Please call the office if you experience any new or worsening problems before your next visit. Orders: Orders Influenza [id number] Immunization Today Z23 - Encounter for immunization
--- OUTSIDE RECORDS SUMMARY | 2025-07-25 15:40 | XMS_ITS | Patient Health Record ---
Author Organization [facility] Address [address] [place] [address] Care Team Providers Care Shoe Repairer Helper Name Role Phone Po Jaiden MARTIN Primary Care Provider Rafael Cantor [phone] Allergies No Known Allergies Reason For Referral [...] a day Active Atorvastatin Calcium 40 MG Oral; Duration: 90 Active Lisinopril 40 MG Oral; Duration: 90 Active Immunizations Vaccine Route Administration Date Status Comme nts Influenza Unknown 05/22/2020 Administered Problems Problem Type SNOMED Code ICD Code Onset Dates Problem Status W/U Status Risk Notes Problem Screening for malignant neoplasm of colon (841022165) Encounter for screening for malignant neoplasm of colon (Z12.11) Active confirmed Problem Maier's esophagus (155066849) Maier's esophagus without dysplasia (K22.70) Active confirmed Problem Gastroesophageal reflux disease (304036613) Gastroesophageal reflux disease (K21.9) Active confirmed Problem Maier esophagus (189441966) Maier esophagus (K22.70) Active confirmed Plan Of Treatment Pending Test Test Name Order Date Pathology 05/20/2021 Future Test Test Name Order Date UPPER GI ENDOSCOPY 03/14/2015 UPPER GI ENDOSCOPY 04/18/2021 COLONOSCOPY 04/18/2021 Insurance Providers Payer Name Payer Address Payer Phone Subscriber Number Group Number Insured Name Patient Relationship to Insured Coverage Start Date Coverage End Date [facility] [address] [place], [place] [id number] [phone] [id number] YAMILET VALENCIA Self - patient is the insured Medical (General) History Medical History History ICD Code GERD/Maier's esophagus--di agnosed in 2008 --last EGD was in 2014--HH noted---no dysplasia on the biopsies--just a small area of Maier's HTN Hyperlipidemia Diverticulosis Denies MT,DM,CVA,renal disease,lung dise ase Colonoscopy 04-19-2009--neg f or polyps-diverticulosis and internal hemorrhoids Hepatic hemangiomas seen on previous ult rasounds and MRIs of the liver Surgical History Surgery Date(Month/Year) Hernia surgery-bilateral inguinal-Dr. Shama Alonso [facility]
== END 2025-07-25 13:49 | disposition home or self-care (01) ==
LOC: HO.HMCH 13:01
PROVIDERS: PCP Internal Medicine; Visit Provider Internal Medicine
DX: I10 Essential (primary) hypertension (principal); E66.9 Obesity, unspecified; Z68.34 Body mass index [BMI] 34.0-34.9, adult; E78.00 Pure hypercholesterolemia, unspecified; K22.70 Barrett's esophagus without dysplasia; F41.1 Generalized anxiety disorder; M51.369 Other intervertebral disc degeneration, lumbar region without mention of lumbar back pain or lower extremity pain; Z23 Encounter for immunization

== ENCOUNTER → 2025-07-25 13:00 | Outpatient (BNVA) | payer MEDICARE, BC, SELFPAY | PROVIDERS: PCP Internal Medicine; Visit Provider Internal Medicine | DX: I10 Essential (primary) hypertension (principal); E78.00 Pure hypercholesterolemia, unspecified; E66.9 Obesity, unspecified; K22.70 Barrett's esophagus without dysplasia; Z23 Encounter for immunization; Z13.31 Encounter for screening for depression; M51.360 Other intervertebral disc degeneration, lumbar region with discogenic back pain only; F41.1 Generalized anxiety disorder | CPT/HCPCS: 90471; 90656; 96127; 99212 ==

== ENCOUNTER 2025-07-28 12:41 | Outpatient (REF) | payer MEDICARE, BC, SELFPAY ==
--- OUTSIDE RECORDS SUMMARY | 2025-07-28 14:51 | XMS_ITS | Patient Health Record ---
Author Organization [facility] Address [address] [place] [address] Care Team Providers Care Griddle Cook Name Role Phone Po Jaiden MARTIN Primary Care Provider Rafael Cantor [phone] Allergies No Known Allergies Reason For Referral [...] Problem Screening for malignant neoplasm of colon (434919643) Encounter for screening for malignant neoplasm of colon (Z12.11) Active confirmed Problem Maier's esophagus (374811558) Maier's esophagus without dysplasia (K22.70) Active confirmed Problem Gastroesophageal reflux disease (073614196) Gastroesophageal reflux disease (K21.9) Active confirmed Problem Maier esophagus (845960321) Maier esophagus (K22.70) Active confirmed Plan Of Treatment Pending Test Test Name Order Date Pathology 05/20/2021 Future Test Test Name Order Date UPPER GI ENDOSCOPY 03/14/2015 UPPER GI ENDOSCOPY 04/18/2021 COLONOSCOPY 04/18/2021 Insurance Providers Payer Name Payer Address Payer Phone Subscriber Number Group Number Insured Name Patient Relationship to Insured Coverage Start Date Coverage End Date [facility] [address] [place], [place] [id number] YAMILET VALENCIA Self - patient is the insured Medical (General) History Medical History History ICD Code GERD/Maier's esophagus--di agnosed in 2008 --last EGD was in 2014--HH noted---no dysplasia on the biopsies--just a small area of Maier's HTN Hyperlipidemia Diverticulosis Denies [place],DM,CVA,renal disease,lung dise ase Colonoscopy 04-19-2009--neg f or polyps-diverticulosis and internal hemorrhoids Hepatic hemangiomas seen on previous ult rasounds and MRIs of the liver Surgical History Surgery Date(Month/Year) Hernia surgery-bilateral inguinal-Dr. Shama Alonso [facility]
== END 2025-07-28 12:42 | disposition home or self-care (01) ==
LOC: HO.MAMMO 12:41
PROVIDERS: PCP Internal Medicine; Visit Provider Internal Medicine
DX: Z12.31 Encounter for screening mammogram for malignant neoplasm of breast (principal)
CPT/HCPCS: 77063; 77067

== ENCOUNTER → 2025-07-28 13:30 | Outpatient (BNV) | payer MEDICARE, BC, SELFPAY | PROVIDERS: PCP Internal Medicine; Visit Provider Internal Medicine | DX: Z12.31 Encounter for screening mammogram for malignant neoplasm of breast (principal) | CPT/HCPCS: 77063; 77067 ==

== ENCOUNTER 2025-08-07 12:45 | Outpatient (REF) | payer MEDICARE, BC, SELFPAY ==
--- NOTE | ~2025-08-07 | MM_ITS ---
EXAMINATION: DXA BONE DENSITY AXIAL HISTORY: M81.0 - Age-related osteoporosis without current pathological fracture TECHNIQUE: Vetiary Dual energy absorptiometry (DEXA) of the lumbar spine, total left hip, and femoral neck was performed. COMPARISON: Comparison is made with the prior examination most recent dated February 2021. FINDINGS: The bone mineral density of the lumbar spine were emphases L1-L2) is 1.339 g/cm2, corresponding to a T-score of 1.4, and a Z-score of 2.7. This is indicative of normal bone mineral density. This represents a BMD change of -4.2% compared to the prior exam. The bone mineral density of the left total hip is 0.930 g/cm2, corresponding to a T-score of -0.6, and a Z-score of 0.6. This is indicative of normal bone mineral density. This represents a BMD change of 5.4% compared to the prior exam. The bone mineral density of the left femoral neck is 1.047 g/cm2, corresponding to a T-score of 0.1, and a Z-score of 1.5. This is indicative of normal bone mineral density. This represents a BMD change of 3.8% compared to the prior exam. FRACTURE RISK: The FRAX index suggests a ten year probability of major osteoporotic fracture of 6.6%, and of hip fracture 0.3%. MM/XR DEXA axial skeleton IMPRESSION: Based on bone mineral density, and according to World Health Organization (WHO) criteria, the diagnosis is consistent with normal bone density based on lowest T score of -0.6 in the left total femur. Treatment Recommendations: NOF guidelines recommend consideration for treatment in postmenopausal women and men age 50 and older presenting with the following: -A hip or vertebral (clinical or morphometric) fracture. -T-score less than or equal to -2.5 at the femoral neck or spine after appropriate evaluation to exclude secondary causes. -Low bone mass at the hip or spine and a 10-year fracture probability by FRAX of greater than or equal to 3% for hip fracture or greater than or equal to 20% for major osteoporotic fracture based on the [place] adapted WHO algorithm. Other Recommendations: All treatment decisions require clinical judgment and consideration of individual patient factors, including patient preferences, comorbidities, previous drug use, risk factors not captured in the FRAX model (e.g. frailty, falls, vitamin D deficiency, increased bone turnover, interval significant decline in bone density) and possible under or overestimation of fracture risk by FRAX. Additional medical evaluation for secondary cause of low bone mineral density may be appropriate. FUTURE SCAN RECOMMENDATION: People with diagnosed cases of osteoporosis or at high risk for fracture should have regular bone mineral density tests. For patients eligible for Medicare, routine testing is allowed once every 2 years. The testing frequency can be increased to one year for patients who have rapidly progressing disease, those who are receiving or discontinuing medical therapy to restore bone mass, or have additional risk factors. Statistically, 68% of repeat scans fall within 1 SD (+/- 0.010 g/cm2 for AP spine L1-L4) and 1 SD (+/- 0.012 g/cm2 for femur total) FRAX is a trademark of the [employer] [place] [employer] Met[employer] Bone Disease, a World Health Organization (WHO) Collaborating Center. Electronically signed by: Zakia Hernandez MD 08/08/2025 08:05 AM DAISY
== END 2025-08-07 12:46 | disposition home or self-care (01) ==
LOC: HO.MAMMO 12:45
PROVIDERS: PCP Internal Medicine; Visit Provider Internal Medicine
DX: M81.0 Age-related osteoporosis without current pathological fracture (principal)
CPT/HCPCS: 77080

== ENCOUNTER → 2025-08-07 13:00 | Outpatient (BNV) | payer MEDICARE, BC, SELFPAY | PROVIDERS: PCP Internal Medicine; Visit Provider Radiology Diagnostic Radiology | DX: E28.39 Other primary ovarian failure (principal) | CPT/HCPCS: 77080 ==